=== PATIENT | female | born 1965 | race Caucasian/White ===

== ENCOUNTER 2020-08-01 19:02 | Inpatient (IN) | payer OTHER, SELFPAY ==
--- NOTE | ~2020-08-01 | XR_ITS ---
EXAMINATION: PELVIS AND RIGHT FEMUR, RIGHT HIP CLINICAL INFORMATION: Fall with hip pain COMPARISON: None TECHNIQUE: 2 views right femur, single view pelvis with 2 additional views right hip FINDINGS: There is a femoral neck fracture with marked varices angulation of the distal fracture fragment and some mild superior subluxation no other fracture is seen. The visualized bowel gas pattern appears normal. No hip dislocation is seen. The remainder of the femur appears normal as does the visualized right knee joint XR/XR femur RT 2V IMPRESSION: Right femoral neck fracture.
--- NOTE | ~2020-08-01 | XR_ITS ---
EXAMINATION: XR PELVIS CLINICAL INFORMATION: Status post right hemiarthroplasty COMPARISON: Right hip radiographs August 01, 2020 TECHNIQUE: AP view of the pelvis. FINDINGS: Patient is status post right hemiarthroplasty. Femoral component is well-seated within the [place] acetabulum. There is no evidence of periprosthetic femoral fracture. A small amount of expected subcutaneous emphysema is noted. XR/XR pelvis 1-2V IMPRESSION: Expected postoperative appearance of the right hip.
--- NOTE | ~2020-08-01 | CT_ITS ---
EXAMINATION: CT ANGIOGRAM OF THE CHEST WITH AND WITHOUT CONTRAST (CT PULMONARY ANGIOGRAM FOR PE) CLINICAL INFORMATION: Hypoxia. COMPARISON: Chest radiograph dated 08/01/2020. TECHNIQUE: Prior to contrast administration, noncontrast localization images were obtained. Subsequently, multidetector volumetric imaging was performed from the thoracic inlet to below the diaphragms following the administration of 80 mL Omnipaque 350 intravenous contrast. No contrast reaction reported Sagittal, coronal, and MIP oblique sagittal reformatted images were obtained on the CT workstation, uploaded to PACS, and reviewed. This CT examination was performed using dose optimization techniques as appropriate, variously including the following: *Automated exposure control *Adjustment of mA and/or kV according to patient size (this includes techniques or standardized protocols for targeted exams where dose is matched to indication/reason for exam; i.e. extremities or head) *Use of iterative reconstruction technique Total exam dose-length product 205 mGy-cm FINDINGS: QUALITY OF STUDY/CONTRAST BOLUS: Satisfactory. PULMONARY ARTERIES: No central or segmental pulmonary emboli. THORACIC AORTA: No aneurysm or dissection. LUNGS/PLEURA/AIRWAYS: A few scattered groundglass opacities are seen. A nutrition representative opacity anteromedially in the left upper lobe is seen (image 154, series 7). A second opacity more centrally in the left upper lobe is seen on image 157, series 7). A small opacity anteriorly in the right upper lobe is seen (image 181, series 7). Mild linear atelectasis versus scarring is seen in the right middle lobe. More prominent atelectasis/scarring is seen posteriorly in the lower lobes. Mild dependent atelectasis is seen in the lower lobes bilaterally. There are trace pleural effusions bilaterally. The airways are patent. MEDIASTINUM: Partial visualization of left thyroid nodule measuring 0.6 cm (image 1, series 5). Normal heart size. No pericardial effusion. No hilar or mediastinal lymphadenopathy. No evidence of septal bowing or right heart strain. CHEST WALL/AXILLA: No axillary or internal mammary lymphadenopathy. OSSEOUS STRUCTURES: No acute or suspicious osseous abnormality. UPPER ABDOMEN: Unremarkable. No reflux of contrast into the hepatic veins to suggest elevated right heart pressures. CT/CT angio chest PE protocol IMPRESSION: 1. No evidence for pulmonary embolism. 2. A few scattered groundglass opacities as well as bibasilar atelectasis and trace pleural effusions are nonspecific, but suggest a mild infectious/inflammatory process. These findings can be monitored in the short-term with chest radiographs as clinically indicated. 3. Partial visualization of small left thyroid nodule. No follow-up imaging is recommended. VTE: Negative.
--- NOTE | ~2020-08-01 | US_ITS ---
EXAMINATION: US ABDOMEN LIMITED CLINICAL INFORMATION: Elevated liver enzymes. COMPARISON: None TECHNIQUE: Real-time imaging of the right upper quadrant abdominal viscera. Today's examination is limited secondary to overlying bowel gas. FINDINGS: PANCREAS: Majority the pancreas is obscured by overlying bowel gas and therefore the pancreas is not accurately evaluated. LIVER: Liver is mildly enlarged. The liver contour is normal. Echogenicity of the liver is heterogeneous. No focal hepatic lesion. There is no intrahepatic biliary duct dilatation seen. GALLBLADDER: The gallbladder is physiologically distended. Echogenic bile is noted dependently in addition to a few gallstones. No gallbladder wall thickening or pericholecystic fluid appreciated. Negative sonographic Shepard's sign. COMMON BILE DUCT: Normal in caliber measuring 0.3 cm in diameter. RIGHT KIDNEY: The kidney measures 12.4 cm in maximum dimension. There is a 4.2 cm simple appearing midpole cyst. No renal calculi or hydronephrosis of the right kidney. FREE FLUID: None. US/US abdomen limited IMPRESSION: 1. Cholelithiasis. No other sonographic evidence to suggest acute cholecystitis. Clinical correlation recommended. 2. Mild hepatomegaly with heterogeneous echogenicity. Findings suggest hepatic steatosis. Correlation with liver enzymes recommended. 3. 4.2 cm right renal cyst.
--- NOTE | ~2020-08-01 | XR_ITS ---
EXAMINATION: PELVIS AND RIGHT FEMUR, RIGHT HIP CLINICAL INFORMATION: Fall with hip pain COMPARISON: None TECHNIQUE: 2 views right femur, single view pelvis with 2 additional views right hip FINDINGS: There is a femoral neck fracture with marked varices angulation of the distal fracture fragment and some mild superior subluxation no other fracture is seen. The visualized bowel gas pattern appears normal. No hip dislocation is seen. The remainder of the femur appears normal as does the visualized right knee joint XR/XR hip RT w PEL1V IMPRESSION: Right femoral neck fracture.
--- NOTE | ~2020-08-01 | XR_ITS ---
EXAMINATION: XR CHEST CLINICAL INFORMATION: Fall with hip fracture with question of rib fractures COMPARISON: None TECHNIQUE: Frontal view of the chest was obtained. FINDINGS: No significant abnormality is noted involving the heart, lungs, mediastinum, bony thorax or soft tissues. No displaced rib fractures or pneumothorax is seen. XR/XR chest 1V IMPRESSION: Unremarkable examination.
[2020-08-01 20:06] VITALS: BP 113/78; PULSE 92; RESP 18; TEMP 36.7; O2SAT 98; BMI 26.6
[2020-08-01] MEDS: Acetaminophen 325 MG TABLET 650 MG PO (22:22)
--- NOTE | 2020-08-01 22:39 | ED.FALL ---
HPI - Fall General Chief Complaint: Fall Stated Complaint: FALL Time Seen by Provider: 08/01/20 22:30 Source: patient Mode of arrival: ambulatory Limitations: no limitations and language barrier History of Present Illness HPI Narrative: 55-year-old female who presents emergency department for evaluation of right lower extremity pain after a fall. Patient states she was walking up stairs her cellar stairs at around 7:00 a.m. when she missed the 1st step, tripped and fell concrete sellar floor, landing on her right side. She states she struck her right chest, right hip and right leg on a concrete landing. She denied any head injury or loss of consciousness. She states that she has had difficulty walking since the injury. She is taking Aleve 2-3 times today with no relief for pain. The pain got worse therefore she came to the emergency department. She describes the pain as a constant, sharp pain which is 10/10. Pain is worse with movement worse with walking. Related Data Home Medications Medication Instructions Recorded Confirmed No Known Home Meds 08/02/20 08/02/20 Allergies Allergy/AdvReac Type Severity Reaction Status Date / Time Penicillins [PENICILLINS] Allergy Unknown UNKNOWN/CHI Unverified 11/18/19 16:24 LDHOOD cillin family Allergy Unknown Uncoded 03/07/16 00:00 Review of Systems Review of Systems: Yes all other systems are reviewed and are negative [facility] Past Medical History [facility] Narrative: Past medical history: None. Past surgical history: None. Social history: The patient smokes 1/2 pack of cigarettes per day times many years. She drinks alcohol every other day 1-2 drinks. She denies drug use. Medical History (Updated 08/01/20 @ 23:35 by Robinson Pike MD) No known health problems Social History Social History Advance Directives: No Advance Directives Information Provided: Yes Patient : No Physical Exam Vital Signs: Vital Signs: Last Vital Signs Temp 98.1 F 08/01/20 20:06 Pulse 92 08/01/20 20:06 Resp 18 08/01/20 20:06 BP 113/78 08/01/20 20:06 Pulse Ox 98 08/01/20 20:06 Body Mass Index 26.6 Const: General: cooperative and healthy appearing Orientation/consciousness: oriented to person and oriented to place Limitations: no limitations HENMT: Head: Yes normal to inspection, Yes normocephalic and Yes atraumatic Ears: external ears normal General nose exam: Normal external nose present Face and sinus: Yes normal facial exam Mouth: Normal oral and palatal mucosa present Throat: Yes posterior oropharynx normal Eyes: Periorbital: periorbital findings normal Eyelids: Yes eyelids normal Conjunctivae: conjunctivae normal Sclerae: sclerae normal Corneas: corneas normal Pupils: Equal, round and reactive pupils present Direct Ophthalmoscopy: normal light reflex Neck: Neck: Yes full ROM, Yes no lymphadenopathy, Yes no meningeal signs, Yes trachea midline and Yes supple Chest: Chest palpation & inspection: normal inspection of the chest and normal palpation of entire chest wall Resp: Effort & Inspection: normal respiratory effort and able to speak in complete sentences Auscultation: clear to auscultation bilaterally Cardio: Rate: regular rate Rhythm: regular rhythm Heart sounds: S1 normal heart sound present, S2 normal heart sound present and no murmurs GI: Inspection: Yes normal to inspection Palpation (GI): Soft to palpation, nontender, no guarding, not rigid and No hepatosplenomegaly present : General: Yes no CVA tenderness Back/Spine/Pelvis: Back: no CVA tenderness Cervical Spine: normal cervical lordosis Thoracic/Lumbar Spine: thoracic and lumbar spine normal to inspection Skin: Lesions: no lesions Rashes: no rashes Wounds: no wounds Neuro: General: oriented to person, oriented to place and no meningeal signs Cranial nerves: Yes CN's II-XII intact bilaterally and Yes Equal, round and reactive pupils present Cognition (Neuro): normal cognition Motor exam (neuro): 5/5 motor strength present throughout Extrem: Other: The patient has tenderness with palpation of her right hip joint, right lateral hip, right lateral femur. Her extremity is neurovascular intact Psych: Appearance: well kempt Mental Status: mental status grossly normal Speech and movement: Normal speech and movement present Affect: normal affect Attitude: cooperative Thought process: Normal thought process present Thought content: Normal thought content present Course Course Course Narrative: 55-year-old female who presents emergency department for evaluation fall walking up stairs that occurred at 7:00 a.m.. Patient is complaining of right lower extremity pain. She does have tenderness with palpation of her right hip and right lateral femur. I did order x-rays of her lower extremity. She was given Tylenol orally for pain. 2326: X-rays revealed a right femoral neck fracture. Chest x-ray was unremarkable. I did order laboratory evaluation and EKG on the patient. Twelve EKG revealed sinus rhythm with inverted T-waves in V2 through V4 otherwise was unremarkable. I do not think that these represent ischemia. I will check a troponin on the patient. I did discuss the patient's presentation with the provider covering for the Orthopedic Service, Dilcia Crowell. The patient will be admitted to the orthopedic service with medical consult given the abnormal EKG. The pain was treated with morphine 4 mg IV and Ativan 0.5 mg IV for anxiety. 0103: Laboratory evaluation revealed a macrocytic anemia with an H&H of 10.4 and 30.5. MCV was elevated at 103. I added a B12 and folate. Patient has an elevated AST and ALT of 82 and 36. Troponin was not detectable. These findings are consistent with alcohol use disorder. The patient did tell me that she drinks at least 3 drinks of vodka per day in in the past was drinking up to 1 pt of vodka per day. I will discuss these findings with the covering orthopedic provider. The patient will need to be watched closely for alcohol withdrawal and will need thigh min and Ash replacement. MDM - Fall Lab Data Result diagrams: 08/01/20 23:46 08/01/20 23:46 Labs: Lab Results 08/01/20 08/01/20 08/01/20 Range/Units 23:46 23:46 23:46 WBC 8.6 (4.8-10.8) X10*3/uL RBC 2.94 L (4.20-5.50) X10*6/uL Hgb 10.4 L (12.0-16.0) g/dl Hct 30.5 L (37-47) % MCV 103.7 H (80-98) fL MCH 35.4 H (27.0-33.0) pg MCHC 34.1 (31.0-35.0) g/dl RDW 16.6 H (11.0-16.0) % Plt Count 176 (160-400) X10*3/uL MPV 10.1 (9.4-12.3) fL Immature Gran % (Auto) 0.3 (0.0-0.4) % Neut % (Auto) 74.3 H (45-73) % Lymph % (Auto) 12.8 L (20-40) % [place] % (Auto) 10.3 (2-11) % Eos % (Auto) 1.6 (0-4) % Baso % (Auto) 0.7 (0-2) % Lymph # (Auto) 1.1 L (1.2-4.9) X10*3/uL [place] # (Auto) 0.9 (0.1-1.2) X10*3/uL Eos # (Auto) 0.1 (0.0-0.4) X10*3/uL Baso # (Auto) 0.1 (0.0-0.2) X10*3/uL Abs Immat Gran (auto) 0.03 (0.00-0.03) X10*3/uL Absolute Neuts (auto) 6.4 (2.0-8.3) X10*3/uL Absolute Nucleated RBC 0.000 (0.0-0.012) X10*3/uL Nucleated RBC % (auto) 0.0 (0.0-0.2) /100WBC PT 18.7 H (10.8-13.0) SEC INR 1.6 H (0.9-1.1) APTT 39.0 H (24.1-38.0) SEC Sodium 138 (135-145) mmol/L Potassium 3.7 (3.3-5.1) mmol/L Chloride 98 (96-108) mmol/L Carbon Dioxide 25 (22-29) mmol/L Anion Gap 19 (12-20) BUN 16 (9-16) mg/dL Creatinine 1.15 (0.5-1.4) mg/dL Estim Creat Clear Calc 53.7 Estimated GFR 49 Random Glucose 126 H (60-115) mg/dL Calcium 8.9 (8.4-10.2) mg/dL Total Bilirubin 2.9 H (0.0-1.0) mg/dL AST 82 H (5-31) U/L ALT 36 H (0-31) U/L Alkaline Phosphatase 137 H (39-117) U/L Troponin I High Sens (<3.5-17.0) ng/L Total Protein 6.7 (6.5-8.0) g/dL Albumin 3.3 L (3.5-5.0) g/dL Blood Type Antibody Screen 08/01/20 08/01/20 Range/Units 23:47 23:47 WBC (4.8-10.8) X10*3/uL RBC (4.20-5.50) X10*6/uL Hgb (12.0-16.0) g/dl Hct (37-47) % MCV (80-98) fL MCH (27.0-33.0) pg MCHC (31.0-35.0) g/dl RDW (11.0-16.0) % Plt Count (160-400) X10*3/uL MPV (9.4-12.3) fL Immature Gran % (Auto) (0.0-0.4) % Neut % (Auto) (45-73) % Lymph % (Auto) (20-40) % [place] % (Auto) (2-11) % Eos % (Auto) (0-4) % Baso % (Auto) (0-2) % Lymph # (Auto) (1.2-4.9) X10*3/uL [place] # (Auto) (0.1-1.2) X10*3/uL Eos # (Auto) (0.0-0.4) X10*3/uL Baso # (Auto) (0.0-0.2) X10*3/uL Abs Immat Gran (auto) (0.00-0.03) X10*3/uL Absolute Neuts (auto) (2.0-8.3) X10*3/uL Absolute Nucleated RBC (0.0-0.012) X10*3/uL Nucleated RBC % (auto) (0.0-0.2) /100WBC PT (10.8-13.0) SEC INR (0.9-1.1) APTT (24.1-38.0) SEC Sodium (135-145) mmol/L Potassium (3.3-5.1) mmol/L Chloride (96-108) mmol/L Carbon Dioxide (22-29) mmol/L Anion Gap (12-20) BUN (9-16) mg/dL Creatinine (0.5-1.4) mg/dL Estim Creat Clear Calc Estimated GFR Random Glucose (60-115) mg/dL Calcium (8.4-10.2) mg/dL Total Bilirubin (0.0-1.0) mg/dL AST (5-31) U/L ALT (0-31) U/L Alkaline Phosphatase (39-117) U/L Troponin I High Sens < 3.5 (<3.5-17.0) ng/L Total Protein (6.5-8.0) g/dL Albumin (3.5-5.0) g/dL Blood Type O Positive Antibody Screen NEGATIVE ECG Data Attestation: I personally reviewed and interpreted this ECG as follows: Interpretation: 2319: Normal sinus rhythm rate of 83, normal [place] interval QRS duration. Patient has a slightly prolonged QTC of 479 milliseconds. There is no ST segment elevation or depression. The patient does have an inverted T-wave in V2, V3 and V4. There is no old EKG for comparison. Discharge Plan Discharge Clinical Impression: Fall (on) (from) other stairs and steps, initial encounter Femoral neck fracture Qualifiers: Encounter type: initial encounter Fracture type: closed Laterality: right Qualified Code(s): S72.001A - Fracture of unspecified part of neck of right femur, initial encounter for closed fracture Patient Disposition: Admitted As Inpatient
--- NOTE | 2020-08-01 22:50 | ECG_ITS ---
Test Reason : Fall, hip fracture Blood Pressure : / mmHG Vent. Rate : 083 BPM Atrial Rate : 083 BPM P-R Int : 150 ms QRS Dur : 082 ms QT Int : 408 ms P-R-T Axes : -13 -06 073 degrees QTc Int : 479 ms Normal sinus rhythm ST & T wave abnormality, consider anterior ischemia Abnormal ECG No previous ECGs available Referred By: Robinson Pike Electronically Signed By:Paul Mir
[2020-08-01] MEDS: Morphine Sulfate 4 MG/ML CARTRIDGE IVPUSH (23:55)
[2020-08-01] MEDS: LORazepam 2 MG/ML VIAL 0.5 MG IVPUSH (23:56)
[2020-08-01 23:59] LABS: MANUAL DIFF FLAG NO
[2020-08-02] VITALS (9 sets, daily range): BP systolic 90–102; BP diastolic 54–62; PULSE 73–97; RESP 15–20; TEMP 35.7–36.7; O2SAT 93–97
--- NOTE | 2020-08-02 | ECG_ITS ---
Test Reason : ANTERIOR DEPRESSION Blood Pressure : / mmHG Vent. Rate : 078 BPM Atrial Rate : 078 BPM P-R Int : 214 ms QRS Dur : 090 ms QT Int : 428 ms P-R-T Axes : 051 -10 111 degrees QTc Int : 487 ms Sinus rhythm with 1st degree A-V block Low voltage QRS T wave abnormality, consider anterior ischemia Prolonged QT Abnormal ECG When compared with ECG of 01-AUG-2020 23:19, NM interval has increased Referred By: Luis Eduardo Gonsales Electronically Signed By:Paul Mir
[2020-08-02 00:01] LABS: Basophils Absolute Auto 0.1 X10*3/uL (0.0-0.2); Basophils Percent Auto 0.7 % (0-2); Eosinophils Absolute Auto 0.1 X10*3/uL (0.0-0.4); Eosinophils Percent Auto 1.6 % (0-4); Hematocrit 30.5 % (37-47); Hemoglobin 10.4 g/dl (12.0-16.0); Imm Gran Abs Auto 0.03 X10*3/uL (0.00-0.03); Imm Gran Pct Auto 0.3 % (0.0-0.4); Lymphocytes Absolute Auto 1.1 X10*3/uL (1.2-4.9); Lymphocytes Percent Auto 12.8 % (20-40); Mean Corpuscular HGB Conc 34.1 g/dl (31.0-35.0); Mean Corpuscular Hemoglobin 35.4 pg (27.0-33.0); Mean Corpuscular Volume 103.7 fL (80-98); Mean Platelet Volume 10.1 fL (9.4-12.3); Monocytes Absolute Auto 0.9 X10*3/uL (0.1-1.2); Monocytes Percent Auto 10.3 % (2-11); Neutrophils Absolute Auto 6.4 X10*3/uL (2.0-8.3); Neutrophils Percent Auto 74.3 % (45-73); Platelet Count 176 X10*3/uL (160-400); Red Blood Count 2.94 X10*6/uL (4.20-5.50); Red Cell Distribution Width 16.6 % (11.0-16.0); White Blood Count 8.6 X10*3/uL (4.8-10.8)
[2020-08-02 00:16] LABS: INTERNATIONAL NORM RATIO 1.6 (0.9-1.1); Prothrombin Time 18.7 SEC (10.8-13.0)
[2020-08-02 00:33] LABS: Alanine Aminotransferase 36 U/L (0-31); Albumin Level 3.3 g/dL (3.5-5.0); Alkaline Phosphatase 137 U/L (39-117); Anion Gap 19 (12-20); Aspartate Amino Transferase 82 U/L (5-31); Bilirubin Total 2.9 mg/dL (0.0-1.0); Blood Urea Nitrogen 16 mg/dL (9-16); Calcium 8.9 mg/dL (8.4-10.2); Carbon Dioxide 25 mmol/L (22-29); Chloride 98 mmol/L (96-108); Creatinine Clr Calc Pharmacy 53.7; Estimated Glomerular Filt Rate 49; Glucose Random 126 mg/dL (60-115); Potassium 3.7 mmol/L (3.3-5.1); Sodium 138 mmol/L (135-145); Total Protein 6.7 g/dL (6.5-8.0)
[2020-08-02 00:40] LABS: Troponin-I High Sensitivity < 3.5 ng/L (<3.5-17.0)
--- NOTE | 2020-08-02 01:16 | PC.NURSE ---
PT MOVED TO MAIN ED REPORT GIVEN TO BIBI HWANG. PT WILL BE MONITOR FOR ETOH WITHDRAWS.
[2020-08-02 01:17] LABS: COVID-19 Test Negative (Negative); IDNOW Serial# 9DD0AD1C
--- NOTE | 2020-08-02 01:56 | PC.NURSE ---
nurse to nurse report given to Gerson MTZ
[2020-08-02 02:09] LABS: Glucose Urine UA NEG (NEG); Leukocyte Esterase Urine TRACE (NEG); Nitrite Urine NEG (NEG); PH 5.5 (5.0-8.0); Specific Gravity - Urine 1.025 (1.005-1.025); UACC Culture Trigger YES; Urine Blood NEG (NEG); Urine Ketones 15 MG/DL (NEG); Urine Protein TRACE MG/DL (NEG-TRACE)
[2020-08-02 02:13] LABS: Appearance Urine HAZY; Color Urine YELLOW
[2020-08-02 02:18] LABS: Bacteria Urine 4+ /LPF; Mucus Urine 1+ /LPF; Squamous Epithelial Cell Urine 1+ /LPF
[2020-08-02] MEDS: Dextrose 5 % and 0.45 % NaCl 1,000 ML 80 ML IVCONT (02:26)
[2020-08-02] MEDS: 0.9 % Sodium Chloride Flush 3 ML SYRINGE IVFLUSH (02:27)
--- NOTE | 2020-08-02 03:26 | PC.NURSE ---
Pt came to the floor with STAT meds of B12, Folic Acid, Thiamine and Vit K1 2 hrs late. Nurse called Er Doc about the orders. He said he was unable to alter the medication and they were overdue to give. Nurse charted not given.
[2020-08-02 07:08] LABS: Anion Gap 12 (12-20); Blood Urea Nitrogen 17 mg/dL (9-16); Calcium 8.5 mg/dL (8.4-10.2); Carbon Dioxide 31 mmol/L (22-29); Chloride 98 mmol/L (96-108); Creatinine Clr Calc Pharmacy 38.2; Estimated Glomerular Filt Rate 33; Glucose Fasting 100 mg/dL (60-99); Potassium 3.4 mmol/L (3.3-5.1); Sodium 138 mmol/L (135-145)
--- NOTE | 2020-08-02 07:41 | P.CONOP_ITS ---
History of Present Illness HPI Consult date: 08/02/20 Consult reason: fracture Chief complaint: Right femoral neck fracture Narrative: Patient presents to the ED yesterday evening after sustaining a fall down her basement stairs at 7:00am. She lives with her significant other and does not use any assistive devices for ambulation. No significant medical history. She presented to the ED at 6:00pm where x-rays where obtained and she was found to have a right hip femoral neck fracture. Orthopedics was then consulted for further evaluation and treatment. She has been admitted to the orthopedic service. Review of Systems Review of Systems: Yes all other systems are reviewed and are negative PMFSH Past Medical History Medical History (Updated 08/01/20 @ 23:35 by Robinson Pike MD) No known health problems Social History Social History Household Members: Significant Other Housing: House Do you presently have visiting nurse or other home services: No Patient Tobacco Use Status: Current everyday Tobacco user Tobacco use type: Cigarette Cigarettes Per Day: 10 Years Smoked: 30 Patient Interested in Nicotine Replacement: No Patient Given Instructions on How to Stop Smoking: No Second Hand Smoke Exposure: No Use of substances other than those prescribed or required for medical reasons: No Substance Use Type: Marijuana Substance Use Frequency: Occasionally Last Used Substance: Days (ago) Currently Displaying Signs/Symptoms of Drug Intoxication Withdrawal: No Any prior treatment program specific to substance use: No Have you been hit, kicked, punched, or otherwise hurt by someone within the past year? If so, by whom?: No Do you feel safe in your current relationship?: No Current Relationship Is there a partner from a previous relationship who is making you feel unsafe now?: No Are you made to feel afraid or neglected: No Advance Directives: No Advance Directives Information Provided: Yes Do you have thoughts of harming others: None Do you have a plan to hurt others: No Plan Recently lost weight without trying: Yes How much weight loss: 14-23 pounds Eating poorly because of decreased appetite: No Nutrition screen score: 4 Nutrition Risks: No Nutritional Risk Patient : No : No Poor oral hygiene: No Meds Allergies Allergy/AdvReac Type Severity Reaction Status Date / Time Penicillins [PENICILLINS] Allergy Unknown UNKNOWN/CHI Verified 08/02/20 02:28 LDHOOD cillin family Allergy Unknown Unknown Uncoded 08/02/20 02:28 Active Medications: Current Medications Generic Name Dose Route Start Last Admin Trade Name Freq PRN Reason Stop Dose Admin Acetaminophen 650 mg 08/02/20 01:13 Acetaminophen Supp 650 Mg Supp.Rect MS Q6H PRN Pain, Mild (Pain Scale 1-3) Docusate Sodium 100 mg 08/02/20 09:00 Docusate Sodium 100 Mg Capsule PO BID PATI Hydromorphone HCl 0.25 mg 08/02/20 01:13 Hydromorphone Hcl 0.5 Mg/0.5 Ml Syringe IVPUSH Q4H PRN Pain, Severe (Pain Scale 7-10) Dextrose/Sodium Chloride 1,000 mls @ 80 mls/hr 08/02/20 01:13 08/02/20 02:26 D51/2ns IVCONT 80 mls/hr .[id number] [facility] Administration Naloxone HCl 0.2 mg 08/02/20 01:13 Naloxone Hcl 0.4 Mg/Ml Vial IVPUSH Q2M PRN Excessive sedation or RR < 8 Ondansetron HCl 4 mg 08/02/20 01:13 Ondansetron Hcl 4 Mg/2 Ml Vial IVPUSH Q8H PRN Nausea and Vomiting Oxycodone HCl 5 mg 08/02/20 01:13 Oxycodone Hcl Immed Release 5 Mg Tablet PO Q4H PRN Pain, Moderate (Pain Scale 4-6 Oxycodone HCl 10 mg 08/02/20 09:00 Oxycodone Hcl Er 10 Mg Tab.Er.12h PO BID PATI Sodium Chloride 3 ml 08/02/20 01:13 08/02/20 02:27 0.9 % Sodium Chloride Flush 3 Ml Syringe IVFLUSH 3 ml QSHIFT [facility] Administration Home Medications Medication Instructions Recorded Confirmed Last Taken Type No Known Home Meds 08/02/20 08/02/20 Unknown History Physical Exam Vital Signs: Vital Signs: Last Vital Signs Temp 96.6 F L 08/02/20 03:19 Pulse 78 08/02/20 03:19 Resp 16 08/02/20 03:19 BP 93/56 L 08/02/20 03:19 Pulse Ox 97 08/02/20 03:19 Body Mass Index 26.6 Const: General: cooperative, healthy appearing, comfortable, no acute distress, well developed, alert and awake Orientation/consciousness: patient oriented x3 HENMT: Head: Yes normal to inspection, Yes normocephalic and Yes atraumatic Eyes: General: appearance normal, both eyes and all related structures Neck: Neck: Yes normal visual inspection and Yes no lymphadenopathy Resp: Effort & Inspection: normal respiratory effort and able to speak in complete sentences Cardio: Rate: regular rate Peripheral pulses: Peripheral pulses 2+ throughout GI: Inspection: Yes normal to inspection Palpation (GI): Soft to palpation Skin: General skin exam: no rashes or lesions noted Neuro: General: patient oriented x3 Extrem: Other: Right leg is shortened and externally rotated. Skin is intact with no abrasions or lesions. Pain with leg roll. Unable to perform a straight leg raise. She is able to plantarflex and dorsiflex. Sensation intact. Pedal pulse intact. Psych: Mental Status: mental status grossly normal Results Labs Result Diagrams: 08/01/20 23:46 08/02/20 06:10 Labs: Abnormal lab results 08/01/20 08/01/20 08/01/20 Range/Units 23:46 23:46 23:46 RBC 2.94 L (4.20-5.50) X10*6/uL Hgb 10.4 L (12.0-16.0) g/dl Hct 30.5 L (37-47) % MCV 103.7 H (80-98) fL MCH 35.4 H (27.0-33.0) pg RDW 16.6 H (11.0-16.0) % Neut % (Auto) 74.3 H (45-73) % Lymph % (Auto) 12.8 L (20-40) % Lymph # (Auto) 1.1 L (1.2-4.9) X10*3/uL PT 18.7 H (10.8-13.0) SEC INR 1.6 H (0.9-1.1) APTT 39.0 H (24.1-38.0) SEC Carbon Dioxide (22-29) mmol/L BUN (9-16) mg/dL Creatinine (0.5-1.4) mg/dL Random Glucose 126 H (60-115) mg/dL Fasting Glucose (60-99) mg/dL Total Bilirubin 2.9 H (0.0-1.0) mg/dL AST 82 H (5-31) U/L ALT 36 H (0-31) U/L Alkaline Phosphatase 137 H (39-117) U/L Albumin 3.3 L (3.5-5.0) g/dL Ur Leukocyte Esterase (NEG) Urine WBC (0-4) /HPF 08/02/20 08/02/20 Range/Units 02:01 06:10 RBC (4.20-5.50) X10*6/uL Hgb (12.0-16.0) g/dl Hct (37-47) % MCV (80-98) fL MCH (27.0-33.0) pg RDW (11.0-16.0) % Neut % (Auto) (45-73) % Lymph % (Auto) (20-40) % Lymph # (Auto) (1.2-4.9) X10*3/uL PT (10.8-13.0) SEC INR (0.9-1.1) APTT (24.1-38.0) SEC Carbon Dioxide 31 H (22-29) mmol/L BUN 17 H (9-16) mg/dL Creatinine 1.62 H (0.5-1.4) mg/dL Random Glucose (60-115) mg/dL Fasting Glucose 100 H (60-99) mg/dL Total Bilirubin (0.0-1.0) mg/dL AST (5-31) U/L ALT (0-31) U/L Alkaline Phosphatase (39-117) U/L Albumin (3.5-5.0) g/dL Ur Leukocyte Esterase TRACE H (NEG) Urine WBC 5-9 H (0-4) /HPF H & H 08/01/20 Range/Units 23:46 Hgb 10.4 L (12.0-16.0) g/dl Hct 30.5 L (37-47) % Coagulation 08/01/20 Range/Units 23:46 INR 1.6 H (0.9-1.1) All other labs normal. Assessment and Plan (1) Femoral neck fracture: Qualifiers: Encounter type: initial encounter Fracture type: closed Laterality: right Qualified Code(s): S72.001A - Fracture of unspecified part of neck of right femur, initial encounter for closed fracture Status: Acute Ms. Larose is a 55 year old female who presented to the ED after sustaining a fall down the basement stairs yesterday morning at 7:00am. X-rays obtained in the ED revealed a right femoral neck fracture and orthopedics was consulted. The patient has been admitted to the orthopedic service for further treatment. I discussed the case with Dr. Lima and explained the extent of the injury to the patient and options available which include surgical intervention. I explained the procedure in detail along with the length of recovery and rehab course. I explained the risk, benefits and alternatives. Risk including, but not limited to infection, blood clots, bleeding, non union or malunion and nerve/tissue damage to surrounding areas. I answered all their questions and with their understanding they have consented to move forward with Operative Fixation of the left hip with a hemiarthroplasty. The patient will be T&S, med c learance to be obtained by medicine and she will remain NPO. (2) Fall (on) (from) other stairs and steps, initial encounter: Status: Acute Procedures Date of Service Date of Service: 08/02/20
[2020-08-02] MEDS: 0.9 % Sodium Chloride 1,000 ML 999 ML IVCONT (08:22)
--- NOTE | 2020-08-02 08:22 | P.CONIM_ITS ---
History of Present Illness Data of Consult Service Date: 08/02/20 Primary Care Provider: Darien Oseguera MD [facility] Reason for consult: Pre-op evaluation 55 year female with reports no chronic medical issues but drinks on daily basis and presently admitted to the Ortho service for hip fracture. She reports triping on stair going to her sellar yesterday morning, she did not injury her head and no loss of consciousness, she was not having chest pain or sob at that time. She doesn't have anginal or heart failure symptoms. Work up in ED reveal right hip fracture. Labs showed elevated LFTs, INR consistent with alcoholic liver disease. Her ECG shows anteroir TWI, no ECG for comparaison. Her Creatinine has gone up this morning to 1.6 from 1.5 prior day. Review of Systems Review of Systems: Gen: no fever Resp: no sob, no cough CV: no chest, no SHARIF, no leg edema GI: No n/v, no abd pain Neuro: No confusion, no tremors, MSK: right hip pain with movment Yes all other systems are reviewed and are negative [facility] Medical History (Updated 08/02/20 @ 08:31 by Luis Eduardo Gonsales MD) Chronic alcohol use No known health problems Functional capacity: independent ambulation Family history: reviewed and not pertinent Social History (Updated 08/02/20 @ 08:30 by Luis Eduardo Gonsales MD) Household Members: Significant Other Housing: House Do you presently have visiting nurse or other home services: No Patient Tobacco Use Status: Current everyday Tobacco user Tobacco use type: Cigarette Cigarettes Per Day: 10 Years Smoked: 30 Patient Interested in Nicotine Replacement: No Patient Given Instructions on How to Stop Smoking: No Second Hand Smoke Exposure: No Use of substances other than those prescribed or required for medical reasons: No Substance Use Type: Marijuana Substance Use Frequency: Occasionally Last Used Substance: Days (ago) Currently Displaying Signs/Symptoms of Drug Intoxication Withdrawal: No Any prior treatment program specific to substance use: No Have you been hit, kicked, punched, or otherwise hurt by someone within the past year? If so, by whom?: No Do you feel safe in your current relationship?: No Current Relationship Is there a partner from a previous relationship who is making you feel unsafe now?: No Are you made to feel afraid or neglected: No Advance Directives: No Advance Directives Information Provided: Yes Do you have thoughts of harming others: None Do you have a plan to hurt others: No Plan Recently lost weight without trying: Yes How much weight loss: 14-23 pounds Eating poorly because of decreased appetite: No Nutrition screen score: 4 Nutrition Risks: No Nutritional Risk Patient : No : No Poor oral hygiene: No Meds Allergies Allergy/AdvReac Type Severity Reaction Status Date / Time Penicillins [PENICILLINS] Allergy Unknown UNKNOWN/CHI Verified 08/02/20 02:28 LDHOOD cillin family Allergy Unknown Unknown Uncoded 08/02/20 02:28 Active Medications: Current Medications Generic Name Dose Route Start Last Admin Trade Name Freq PRN Reason Stop Dose Admin Acetaminophen 650 mg 08/02/20 01:13 Acetaminophen Supp 650 Mg Supp.Rect CA Q6H PRN Pain, Mild (Pain Scale 1-3) Docusate Sodium 100 mg 08/02/20 09:00 Docusate Sodium 100 Mg Capsule PO BID PATI Hydromorphone HCl 0.25 mg 08/02/20 01:13 Hydromorphone Hcl 0.5 Mg/0.5 Ml Syringe IVPUSH Q4H PRN Pain, Severe (Pain Scale 7-10) Dextrose/Sodium Chloride 1,000 mls @ 80 mls/hr 08/02/20 01:13 08/02/20 02:26 D51/2ns IVCONT 80 mls/hr .[id number] PATI Administration Sodium Chloride 1,000 mls @ 999 mls/hr 08/02/20 08:30 Ns IVCONT 08/02/20 09:30 .Q1H1M PATI Phytonadione 10 mg/ Sodium 51 mls @ 51 mls/hr 08/02/20 08:19 Chloride IV 08/02/20 09:18 ONCE ONE Naloxone HCl 0.2 mg 08/02/20 01:13 Naloxone Hcl 0.4 Mg/Ml Vial IVPUSH Q2M PRN Excessive sedation or RR < 8 Ondansetron HCl 4 mg 08/02/20 01:13 Ondansetron Hcl 4 Mg/2 Ml Vial IVPUSH Q8H PRN Nausea and Vomiting Oxycodone HCl 5 mg 08/02/20 01:13 Oxycodone Hcl Immed Release 5 Mg Tablet PO Q4H PRN Pain, Moderate (Pain Scale 4-6 Oxycodone HCl 10 mg 08/02/20 09:00 Oxycodone Hcl Er 10 Mg Tab.Er.12h PO BID PATI Sodium Chloride 3 ml 08/02/20 01:13 08/02/20 02:27 0.9 % Sodium Chloride Flush 3 Ml Syringe IVFLUSH 3 ml QSHIFT [facility] Administration Home Medications Medication Instructions Recorded Confirmed Last Taken Type No Known Home Meds 08/02/20 08/02/20 Unknown History Physical Exam Vital Signs and Narrative: Vital Signs: Last Vital Signs Temp 96.2 F L 08/02/20 08:00 Pulse 74 08/02/20 08:00 Resp 16 08/02/20 08:00 BP 90/55 L 08/02/20 08:00 Pulse Ox 96 08/02/20 08:00 Body Mass Index 26.6 Const: Other: Constitutional Awake and Alert, No apparent distress HEENT-normal eye movment, no clear jaundice Neck Supple, No lymphadenopathy Cardiovascular RRR, No M/R/G, S1 S2, No S3 S4, No pedal edema Respiratory Lungs clear, No respiratory distress Gastrointestinal Non tender, Non-distended Skin No rash Neurological Alert & oriented x3 Psychological Appropriate affect Results Labs CBC and Chem 7: 08/01/20 23:46 08/02/20 06:10 Labs: Laboratory Results - last 24 hr 08/01/20 08/01/20 08/01/20 23:46 23:46 23:46 MCV 103.7 H MCH 35.4 H MCHC 34.1 RDW 16.6 H Plt Count 176 MPV 10.1 Immature Gran % (Auto) 0.3 Neut % (Auto) 74.3 H Lymph % (Auto) 12.8 L [place] % (Auto) 10.3 Eos % (Auto) 1.6 Baso % (Auto) 0.7 Lymph # (Auto) 1.1 L [place] # (Auto) 0.9 Eos # (Auto) 0.1 Baso # (Auto) 0.1 Abs Immat Gran (auto) 0.03 Absolute Neuts (auto) 6.4 Absolute Nucleated RBC 0.000 Nucleated RBC % (auto) 0.0 PT 18.7 H INR 1.6 H APTT 39.0 H Anion Gap 19 Estim Creat Clear Calc 53.7 Estimated GFR 49 Random Glucose 126 H Fasting Glucose Calcium 8.9 Total Bilirubin 2.9 H AST 82 H ALT 36 H Alkaline Phosphatase 137 H Troponin I High Sens Total Protein 6.7 Albumin 3.3 L Urine Color Urine Appearance Urine pH Ur Specific [place] Urine Protein Urine Glucose (UA) Urine Ketones Urine Blood Urine Nitrite Ur Leukocyte Esterase Urine RBC Urine WBC Ur Squamous Epith Cells Urine Bacteria Hyaline Casts Urine Mucus COVID-19 (REBECCA) COVID-19 Clin Com Blood Type Antibody Screen 08/01/20 08/01/20 08/02/20 23:47 23:47 00:57 MCV MCH MCHC RDW Plt Count MPV Immature Gran % (Auto) Neut % (Auto) Lymph % (Auto) [place] % (Auto) Eos % (Auto) Baso % (Auto) Lymph # (Auto) [place] # (Auto) Eos # (Auto) Baso # (Auto) Abs Immat Gran (auto) Absolute Neuts (auto) Absolute Nucleated RBC Nucleated RBC % (auto) PT INR APTT Anion Gap Estim Creat Clear Calc Estimated GFR Random Glucose Fasting Glucose Calcium Total Bilirubin AST ALT Alkaline Phosphatase Troponin I High Sens < 3.5 Total Protein Albumin Urine Color Urine Appearance Urine pH Ur Specific [place] Urine Protein Urine Glucose (UA) Urine Ketones Urine Blood Urine Nitrite Ur Leukocyte Esterase Urine RBC Urine WBC Ur Squamous Epith Cells Urine Bacteria Hyaline Casts Urine Mucus COVID-19 (REBECCA) Negative COVID-19 Clin Com See Note Blood Type O Positive Antibody Screen NEGATIVE 08/02/20 08/02/20 02:01 06:10 MCV MCH MCHC RDW Plt Count MPV Immature Gran % (Auto) Neut % (Auto) Lymph % (Auto) [place] % (Auto) Eos % (Auto) Baso % (Auto) Lymph # (Auto) [place] # (Auto) Eos # (Auto) Baso # (Auto) Abs Immat Gran (auto) Absolute Neuts (auto) Absolute Nucleated RBC Nucleated RBC % (auto) PT INR APTT Anion Gap 12 Estim Creat Clear Calc 38.2 Estimated GFR 33 Random Glucose Fasting Glucose 100 H Calcium 8.5 Total Bilirubin AST ALT Alkaline Phosphatase Troponin I High Sens Total Protein Albumin Urine Color YELLOW Urine Appearance HAZY Urine pH 5.5 Ur Specific [place] 1.025 Urine Protein TRACE Urine Glucose (UA) NEG Urine Ketones 15 Urine Blood NEG Urine Nitrite NEG Ur Leukocyte Esterase TRACE H Urine RBC 1-4 Urine WBC 5-9 H Ur Squamous Epith Cells 1+ Urine Bacteria 4+ Hyaline Casts 1-4 Urine Mucus 1+ COVID-19 (REBECCA) COVID-19 Clin Com Blood Type Antibody Screen Imaging Radiologist's Impressions: Impressions Femur X-Ray 08/01/20 22:38 IMPRESSION: Right femoral neck fracture. Hip/Pelvis X-Ray 08/01/20 22:38 IMPRESSION: Right femoral neck fracture. Chest X-Ray 08/01/20 22:49 IMPRESSION: Unremarkable examination. Assessment and Plan (1) Femoral neck fracture: Qualifiers: Encounter type: initial encounter Fracture type: closed Laterality: right Qualified Code(s): S72.001A - Fracture of unspecified part of neck of right femur, initial encounter for closed fracture Status: Acute (2) Chronic alcohol use: Status: Inactive (3) Fall (on) (from) other stairs and steps, initial encounter: Status: Acute 55 year female with alcohol dependency here with mechanical fall and righ hip fracture 1/Right hip fracture--surgery is planned, I would determine her cdardiac risk to be low, however her ECG and is clearly abnormal with anterior TWI and no prior for comparaison and therefore I suggest cardiology to assess her as well before surgery. Repeat ECG this morning. 2/Alcohol dependence--high risk for withdrawal and would suggest premptively treating with Phenobarbital, supplemental folic acid, thiamine 3/CHRIS--pre renal due to low, DC 1/2 NS and add Normal saline, repeat Creatine in the mroning 4/Coagulaopathy with INR 1.6 d/t chronic liver disease and likely cirrhosis of liver -Vitamin K 10, 5/ Elevated LFTs due to chronic liver disease/cirrhosis-should get US of liver before discharge 6/Hypotension-- DC 1/2 NS, add NS Juan follow. Thanks
[2020-08-02] MEDS: oxyCODONE HCl ER 10 MG TAB.ER.12H PO ×2 (08:28→20:43)
[2020-08-02] MEDS: Docusate Sodium 100 MG CAPSULE PO ×2 (08:28→20:42)
[2020-08-02] MEDS: Phytonadione (Vit K1) 10 MG in 0.9 % Sodium Chloride 50 ML 51 MG IV (09:09)
--- NOTE | 2020-08-02 09:22 | MHC.CM.PN ---
Addendum entered by Bernice Hernández RN 08/02/20 12:51: CM DID DISCUSS ETOH USE W/PT WHO DENIES SHE HAS A PROBLEM AND HAS CUT DOWN TO 1-2 DRINKS PER DAY ON HER OWN, DENIES SHE WAS DRINKING WHEN SHE FELL, PT CURRENTLY DECLINING CARE TEAM OR RECOVERY SUPPORT NURSE HOWEVER BY END OF CONVERSATION PT SEEMED INTERESTED IN MED ASSISTED TX HOWEVER NOT READY TO SEE RECOVERY NURSE TODAY, WILL FOLLOW-UP WITH PT LATER IN STAY. Original Note: EMR REVIEWED, PT ADMITTED AFTER FALL W/R FEMORAL NECK FX, PT TO HAVE LEFT HIP HEMIARTHROPLASTY TODAY, CM MET W/PT WHO IS [facility], PT IS INDEPENDENT W/ALL CARE AT BASELINE, NO DME AND NO HOME SERVICES, CM DISCUSSED NEED FOR STR S/P HIP REPAIR AND PT IS WILLING TO GO HOWEVER IS CONCERNED ABOUT CLOSING ON [place] THAT WAS SCHEDULED TOMORROW 08/03, PER PT HER BF [place] SHE IS FROM IS ASSISTING HER REARRANGE HER CLOSING, PT ALSO REPORTS LATHA WOULD LET HER STAY WITH HIM DUE TO HIS HOME BEING ON ONE LEVEL. PT GIVEN LIST OF SNF'S COVERED UNDER HER INSURANCE FOR STR. D/C PLAN: STR W/BLS TRANSPORT PCP: PRANAV WOMACK CM TO VERIFY HCP, PT DOES NOT HAVE A COPY, PT TO SPEAK TO FRIEND/EXBF AND IS WILLING TO COMPLETE A NEW ONE
[2020-08-02] MEDS: oxyCODONE HCl Immed Release 5 MG TABLET PO ×3 (09:32→18:23)
[2020-08-02] MEDS: Thiamine HCL 100 MG TABLET PO (09:32)
[2020-08-02] MEDS: PHENobarbitaL sodium 130 MG/ML VIAL 175 MG IM (09:32)
[2020-08-02] MEDS: Folic Acid 1 MG TABLET PO (09:32)
[2020-08-02] MEDS: 0.9 % Sodium Chloride 1,000 ML 125 ML IVCONT ×3 (10:50→23:41)
--- NOTE | 2020-08-02 11:00 | CA_ITS ---
Transthoracic Echocardiogram Patient (Last, First, Middle): Johnna Larose, Gender: Female Date of : 1965 Age: 55 Procedure Date: 08/02/2020 Procedure Type: Transthoracic Echocardiogram Location: S3E Height: 162.56 cm Weight: 70.31 kg BSA: 1.76 m2 Heart Rate: bpm BP: 90 / 55 mmHg Computer Hardware Developer: Referring MD: Paul Mir MD Symptoms: CP, POSSIBLE CAD, Assess RWMA Study Quality: Good Conclusions: - Normal left ventricular size and systolic function. - There is normal right ventricular systolic function. RV appears mildly dilated in some views. - There is no evidence of pericardial effusion. Findings Left Ventricle Normal left ventricular size and systolic function. There is mildly increased left ventricular wall thickness. The visually estimated ejection fraction is between 65-70%. There is no evidence of regional wall motion abnormalities. Diastolic function is normal for age. Right Ventricle There is normal right ventricular systolic function. RV appears mildly dilated in some views. Atria The left atrium is normal in size. Aortic Valve The aortic valve structure and function is likely normal. There is no aortic valve stenosis. There is no aortic valve regurgitation. Mitral Valve Normal mitral valve structure and function. There is no mitral valve regurgitation. There is no mitral valve stenosis. Pulmonic Valve Normal pulmonic valve structure and function. There is trace pulmonic valve regurgitation. Tricuspid Valve Normal tricuspid valve structure and function. There is trace tricuspid valve regurgitation. Normal right atrial pressure. There is no evidence of pulmonary hypertension. Great Vessels All visible segments of the aorta are normal in size. The visualized portions of the pulmonary artery and branches are normal. Venous The inferior vena cava is normal in size and collapses greater than 50% with inspiration. Pericardium/Pleural There is no evidence of pericardial effusion. Prior Study Comparison No prior study available for comparison. Measurements 2D Linear Measurements IVSd: 0.98 0.6-0.9/0.6-1.0 cm LVIDd: 4.23 3.9-5.3/4.2-5.9 cm LVIDd Index: 2.40 2.4-3.2/2.2-3.1 cm/m2 LVIDs: 2.69 2.0-3.6 cm LVPWd: 0.98 0.7-1.1 cm Ao Root: 2.80 2.1-3.5 cm LA Diam: 3.70 2.7-3.8/3.0-4.0 cm LAIDs Index: 2.10 1.5-2.3 cm/m2 LV Mass: 167.71 67-162/88-224 g LV Mass Index: 95.29 43-95/49-115 g/m2 LVOT Diam: 2.10 3.0+(-)1.3 cm Mitral Valve MV Pk E: 0.94 MV PK A: 0.71 MV Decel Time: 128.00 E/A: 1.30 E'Lateral: 11.20 E'Medial: 9.36 E/E' Med: 10.00 E/E' Lat: 8.40 PHT: 37.00 MVA PHT: 5.95 Decel Gove: 7.33 Aortic Valve AoV Pk [place]: 1.57 AoV Mn [place]: 1.00 AoV VTI: 0.31 AoV Pk Grad: 10.00 Aov Mn Grad: 5.00 BETSY Cont.VTI: 2.08 LVOT LVOT Pk [place]: 1.03 LVOT Mn [place]: 0.78 LVOT VTI: 0.18 LVOT Pk Grad: 4.00 LVOT Mn Grad: 3.00 LVOT Diam: 2.10 LVOT Area: 3.46 Diastolic Function MV Pk E: 0.94 MV Pk A: 0.71 E/A: 1.30 E'Medial: 9.36 E/E' Med: 10.00 E' Laterial: 11.20 E/E' Lat: 8.40 Tricuspid Valve TR Pk [place]: 2.00 TR Pk Grad: 16.00 RA Press: 3.00 RVSP: 19.00 Great Vessels Aorta Ao Root-2D: 2.80 2.0-3.7 cm Ao Asc: 3.00 2.1-3.4 cm Pulmonary Valve PV Pk [place]ell: 1.19 Peak PV Grad: 6.00 Updated in Other Vendor System with Status of Final Paul Mir MD electronically signed on 08/02/2020 2:47:46 PM with status of Final
--- NOTE | 2020-08-02 11:28 | PC.NURSE ---
cardiology called regarding urgent echo ordered. Awaiting call back
[2020-08-02 11:37] LABS: Folate 4.1 ng/mL (> or = 4.0); Vitamin B12 688 pg/mL (200-900)
--- NOTE | 2020-08-02 12:05 | PM.CNCAR ---
History of Present Illness History of Present Illness Date of Service: 08/02/20 Requesting physician: Dilcia Crowell Chief complaint: Right femoral neck fracture, anterior t wave inver Narrative: 55-year-old female with use and mechanical fall. She has femoral neck fracture. ECG showing anterior T-wave inversions. Repeat EKG showing similar changes without any occlusion. She has no chest pain or shortness of breath. No previous cardiac issues. Asymptomatic other than the right leg pain. [facility] Past Medical History Medical History (Updated 08/02/20 @ 12:11 by Paul Mir MD) Chronic alcohol use No known health problems Functional capacity: independent ambulation Family History Family history: reviewed and not pertinent Social History Social History (Updated 08/02/20 @ 08:30 by Luis Eduardo Gonsales MD) Household Members: Significant Other Housing: House Do you presently have visiting nurse or other home services: No Patient Tobacco Use Status: Current everyday Tobacco user Tobacco use type: Cigarette Cigarettes Per Day: 10 Years Smoked: 30 Patient Interested in Nicotine Replacement: No Patient Given Instructions on How to Stop Smoking: No Second Hand Smoke Exposure: No Use of substances other than those prescribed or required for medical reasons: No Substance Use Type: Marijuana Substance Use Frequency: Occasionally Last Used Substance: Days (ago) Currently Displaying Signs/Symptoms of Drug Intoxication Withdrawal: No Any prior treatment program specific to substance use: No Have you been hit, kicked, punched, or otherwise hurt by someone within the past year? If so, by whom?: No Do you feel safe in your current relationship?: No Current Relationship Is there a partner from a previous relationship who is making you feel unsafe now?: No Are you made to feel afraid or neglected: No Advance Directives: No Advance Directives Information Provided: Yes Do you have thoughts of harming others: None Do you have a plan to hurt others: No Plan Recently lost weight without trying: Yes How much weight loss: 14-23 pounds Eating poorly because of decreased appetite: No Nutrition screen score: 4 Nutrition Risks: No Nutritional Risk Patient : No : No Poor oral hygiene: No service: No Current occupational status: unemployed Meds Allergies Allergy/AdvReac Type Severity Reaction Status Date / Time Penicillins [PENICILLINS] Allergy Unknown UNKNOWN/CHI Verified 08/02/20 02:28 LDHOOD cillin family Allergy Unknown Unknown Uncoded 08/02/20 02:28 Active Medications: Current Medications Generic Name Dose Route Start Last Admin Trade Name Freq PRN Reason Stop Dose Admin Acetaminophen 650 mg 08/02/20 01:13 Acetaminophen Supp [address] Q6H PRN Pain, Mild (Pain Scale 1-3) Docusate Sodium 100 mg 08/02/20 09:00 08/02/20 08:28 Docusate Sodium 100 Mg Capsule PO 100 mg BID PATI Administration Folic Acid 1 mg 08/02/20 09:00 08/02/20 09:32 Folic Acid 1 Mg Tablet PO 08/04/20 09:01 1 mg DAILY PATI Administration Hydromorphone HCl 0.25 mg 08/02/20 01:13 Hydromorphone Hcl 0.5 Mg/0.5 Ml Syringe IVPUSH Q4H PRN Pain, Severe (Pain Scale 7-10) Sodium Chloride 1,000 mls @ 125 mls/hr 08/02/20 08:45 08/02/20 10:50 Ns IVCONT 125 mls/hr .Q8H PATI Administration Medication 1 each 08/02/20 09:00 No Benzodiazepines MISCELLANE DAILY [facility] Naloxone HCl 0.2 mg 08/02/20 01:13 Naloxone Hcl 0.4 Mg/Ml Vial IVPUSH Q2M PRN Excessive sedation or RR < 8 Ondansetron HCl 4 mg 08/02/20 01:13 Ondansetron Hcl 4 Mg/2 Ml Vial IVPUSH Q8H PRN Nausea and Vomiting Oxycodone HCl 5 mg 08/02/20 01:13 08/02/20 09:32 Oxycodone Hcl Immed Release 5 Mg Tablet PO 5 mg Q4H PRN Administration Pain, Moderate (Pain Scale 4-6 Oxycodone HCl 10 mg 08/02/20 09:00 08/02/20 08:28 Oxycodone Hcl Er 10 Mg Tab.Er.12h PO 10 mg BID PATI Administration Phenobarbital 45 mg 08/02/20 21:00 Phenobarbital 15 Mg Tablet PO 08/04/20 09:01 BID [facility] Protocol Phenobarbital 30 mg 08/04/20 21:00 Phenobarbital 30 Mg Tablet PO 08/06/20 09:01 BID [facility] Protocol Phenobarbital 30 mg 08/07/20 09:00 Phenobarbital 30 Mg Tablet PO 08/08/20 09:01 DAILY [facility] Protocol Phenobarbital Sodium 130 mg 08/02/20 12:30 Phenobarbital Sodium 130 Mg/Ml Vial IM 08/02/20 15:31 Q3H [facility] Protocol Sodium Chloride 3 ml 08/02/20 01:13 08/02/20 08:25 0.9 % Sodium Chloride Flush 3 Ml Syringe IVFLUSH Not Given QSHIFT [facility] Thiamine HCl 100 mg 08/02/20 09:00 08/02/20 09:32 Thiamine Hcl 100 Mg Tablet PO 08/04/20 09:01 100 mg DAILY PATI Administration Home Medications Medication Instructions Recorded Confirmed Last Taken Type No Known Home Meds 08/02/20 08/02/20 Unknown History Physical Exam Vital Signs: Vital Signs: Last Vital Signs Temp 96.2 F L 08/02/20 08:00 Pulse 96 08/02/20 10:00 Resp 16 08/02/20 08:00 BP 99/58 L 08/02/20 10:00 Pulse Ox 96 08/02/20 08:00 Body Mass Index 26.6 GENERAL APPEARANCE: in no acute distress, pleasant. NECK: no carotid bruit, no jugular venous distention. SKIN: no suspicious lesions, warm and dry. HEART: no murmurs, regular rate and rhythm. LUNGS: clear to auscultation bilaterally. ABDOMEN: soft, nontender. EXTREMITIES: no edema. PERIPHERAL PULSES: equal. NEUROLOGIC: No gross deficits, AAO X 3 Results Labs and Meds Result diagrams: 08/01/20 23:46 08/02/20 06:10 Lab results: Laboratory Results - last 24 hr 08/01/20 08/01/20 08/01/20 23:46 23:46 23:46 WBC 8.6 RBC 2.94 L Hgb 10.4 L Hct 30.5 L MCV 103.7 H MCH 35.4 H MCHC 34.1 RDW 16.6 H Plt Count 176 MPV 10.1 Immature Gran % (Auto) 0.3 Neut % (Auto) 74.3 H Lymph % (Auto) 12.8 L [place] % (Auto) 10.3 Eos % (Auto) 1.6 Baso % (Auto) 0.7 Lymph # (Auto) 1.1 L [place] # (Auto) 0.9 Eos # (Auto) 0.1 Baso # (Auto) 0.1 Abs Immat Gran (auto) 0.03 Absolute Neuts (auto) 6.4 Absolute Nucleated RBC 0.000 Nucleated RBC % (auto) 0.0 PT 18.7 H INR 1.6 H APTT 39.0 H Sodium 138 Potassium 3.7 Chloride 98 Carbon Dioxide 25 Anion Gap 19 BUN 16 Creatinine 1.15 Estim Creat Clear Calc 53.7 Estimated GFR 49 Random Glucose 126 H Fasting Glucose Calcium 8.9 Total Bilirubin 2.9 H AST 82 H ALT 36 H Alkaline Phosphatase 137 H Troponin I High Sens Total Protein 6.7 Albumin 3.3 L Vitamin B12 Folate Urine Color Urine Appearance Urine pH Ur Specific [place] Urine Protein Urine Glucose (UA) Urine Ketones Urine Blood Urine Nitrite Ur Leukocyte Esterase Urine RBC Urine WBC Ur Squamous Epith Cells Urine Bacteria Hyaline Casts Urine Mucus COVID-19 (REBECCA) COVID-19 Ynsect Com Blood Type Antibody Screen 08/01/20 08/01/20 08/02/20 23:47 23:47 00:57 WBC RBC Hgb Hct MCV MCH MCHC RDW Plt Count MPV Immature Gran % (Auto) Neut % (Auto) Lymph % (Auto) [place] % (Auto) Eos % (Auto) Baso % (Auto) Lymph # (Auto) [place] # (Auto) Eos # (Auto) Baso # (Auto) Abs Immat Gran (auto) Absolute Neuts (auto) Absolute Nucleated RBC Nucleated RBC % (auto) PT INR APTT Sodium Potassium Chloride Carbon Dioxide Anion Gap BUN Creatinine Estim Creat Clear Calc Estimated GFR Random Glucose Fasting Glucose Calcium Total Bilirubin AST ALT Alkaline Phosphatase Troponin I High Sens < 3.5 Total Protein Albumin Vitamin B12 Folate Urine Color Urine Appearance Urine pH Ur Specific [place] Urine Protein Urine Glucose (UA) Urine Ketones Urine Blood Urine Nitrite Ur Leukocyte Esterase Urine RBC Urine WBC Ur Squamous Epith Cells Urine Bacteria Hyaline Casts Urine Mucus COVID-19 (REBECCA) Negative COVID-19 Ynsect Com See Note Blood Type O Positive Antibody Screen NEGATIVE 08/02/20 08/02/20 08/02/20 02:01 06:10 06:10 WBC RBC Hgb Hct MCV MCH MCHC RDW Plt Count MPV Immature Gran % (Auto) Neut % (Auto) Lymph % (Auto) [place] % (Auto) Eos % (Auto) Baso % (Auto) Lymph # (Auto) [place] # (Auto) Eos # (Auto) Baso # (Auto) Abs Immat Gran (auto) Absolute Neuts (auto) Absolute Nucleated RBC Nucleated RBC % (auto) PT INR APTT Sodium 138 Potassium 3.4 Chloride 98 Carbon Dioxide 31 H Anion Gap 12 BUN 17 H Creatinine 1.62 H Estim Creat Clear Calc 38.2 Estimated GFR 33 Random Glucose Fasting Glucose 100 H Calcium 8.5 Total Bilirubin AST ALT Alkaline Phosphatase Troponin I High Sens Total Protein Albumin Vitamin B12 688 Folate 4.1 Urine Color YELLOW Urine Appearance HAZY Urine pH 5.5 Ur Specific [place] 1.025 Urine Protein TRACE Urine Glucose (UA) NEG Urine Ketones 15 Urine Blood NEG Urine Nitrite NEG Ur Leukocyte Esterase TRACE H Urine RBC 1-4 Urine WBC 5-9 H Ur Squamous Epith Cells 1+ Urine Bacteria 4+ Hyaline Casts 1-4 Urine Mucus 1+ COVID-19 (REBECCA) COVID-19 Clin Com Blood Type Antibody Screen Imaging Radiologist's impression: Impressions Femur X-Ray 08/01/20 22:38 IMPRESSION: Right femoral neck fracture. Hip/Pelvis X-Ray 08/01/20 22:38 IMPRESSION: Right femoral neck fracture. Chest X-Ray 08/01/20 22:49 IMPRESSION: Unremarkable examination. Assessment and Plan (1) Femoral neck fracture: Qualifiers: Encounter type: initial encounter Fracture type: closed Laterality: right Qualified Code(s): S72.001A - Fracture of unspecified part of neck of right femur, initial encounter for closed fracture Status: Acute (2) Abnormal ECG: Status: Acute 55-year-old female who is presenting with mechanical fall and femoral neck fracture. She has anterior T-wave inversions on the ECG. On repeat ECG there is no evolution of the changes. She is completely asymptomatic. Cardiac enzymes are normal. The differential with these changes include left ventricular hypertrophy, LAD territory ischemia, Takotsubo CM, pulmonary embolism and sometimes right ventricular issues like ARVD. Currently she is asymptomatic. I will do echocardiogram to assess for any wall motion abnormalities or right ventricular dysfunction. If echo is normal and she has no symptoms then I think we can proceed with surgery with intermediate risk for perioperative cardiovascular complications. On the other hand if there is significant abnormalities on the echocardiogram then we may have to change our management plan accordingly. Thank you for allowing me to participate in the care of your patient. Please feel free to contact me if you have any questions. Procedures Date of Service Date of Service: 08/02/20
[2020-08-02] MEDS: PHENobarbitaL sodium 130 MG/ML VIAL IM ×2 (13:08→16:27)
--- NOTE | 2020-08-02 14:32 | MHC.CLN ---
PT REPORTS INTENTIONAL WT LOSS OVER PAST 1.5 YEARS PT STATED SHE IS NOT INTERESTED IN WT GAIN AND WT MAINTENANCE IS GOAL AT THIS TIME PT DOES NOT TRIGGER FOR SIGNIFICANT WT LOSS
--- NOTE | 2020-08-02 15:40 | MHC.CM.PN ---
PER ORTHO PT WILL NOT HAVE SURGERY TODAY, PLAN IS FOR RIGHT HEMIARTHROPLASTY TOMORROW 08/03/20. PT AND FAMILY HESITANT ABOUT STR HOWEVER CM HAS ENCOURAGED FAMILY TO STR DUE TO PT NOT HAVING A PCP, PT REPORTED INSURANCE PLAN CHANGED AND SHE WAS ASSIGNED A PCP SHE HAS NEVER SEEN. PER PARTNER/FRIEND (LATHA) TOP CHOICES FOR STR ARE 1) [facility] AND 2) [facility], PER LATHA HE WILL LOOK FOR LETTER W/PT'S ASSIGNED PCP HOWEVER PT AND FAMILY GIVEN DIRECTIONS TO LOOK UP PCP'S LISTED UNDER PT'S INSURANCE AND CHOOSE ONE CLOSER TO HOME DUE TO PT NOT WANTING TO TRAVEL TO [place] FOR A PCP. CM WILL PLACE REFERRALS TO CHOSEN SNF'S AND CONT TO FOLLOW D/C NEEDS. CM MET W/PT TO [facility], PT GIVEN INFORMATION, ORIGINAL AND 3 COPIES, COPY UPLOADED TO [facility] AND PLACED IN CHART. HEALTH CARE AGENT: LATHA SAMAYOA [phone] ALTERNATE: JOJO GAGE [phone]
[2020-08-02 19:15] LABS: D Dimer 880 NG/ML
[2020-08-02] MEDS: PHENobarbitaL 15 MG TABLET 45 MG PO (20:43)
[2020-08-03 03:02] VITALS: BP 92/50; PULSE 70; RESP 16; TEMP 36.3; O2SAT 95
[2020-08-03 06:25] LABS: MANUAL DIFF FLAG NO
[2020-08-03 06:51] LABS: Basophils Absolute Auto 0.1 X10*3/uL (0.0-0.2); Basophils Percent Auto 0.6 % (0-2); Eosinophils Absolute Auto 0.3 X10*3/uL (0.0-0.4); Eosinophils Percent Auto 4.1 % (0-4); Hematocrit 27.3 % (37-47); Hemoglobin 9.2 g/dl (12.0-16.0); Imm Gran Abs Auto 0.03 X10*3/uL (0.00-0.03); Imm Gran Pct Auto 0.4 % (0.0-0.4); Lymphocytes Absolute Auto 1.8 X10*3/uL (1.2-4.9); Lymphocytes Percent Auto 22.2 % (20-40); Mean Corpuscular HGB Conc 33.7 g/dl (31.0-35.0); Mean Corpuscular Hemoglobin 35.4 pg (27.0-33.0); Mean Platelet Volume 10.7 fL (9.4-12.3); Monocytes Absolute Auto 0.9 X10*3/uL (0.1-1.2); Monocytes Percent Auto 11.5 % (2-11); Neutrophils Percent Auto 61.2 % (45-73); Platelet Count 134 X10*3/uL (160-400); White Blood Count 8.1 X10*3/uL (4.8-10.8)
[2020-08-03 06:52] LABS: Anion Gap 12 (12-20); Blood Urea Nitrogen 21 mg/dL (9-16); Carbon Dioxide 25 mmol/L (22-29); Chloride 105 mmol/L (96-108); Creatinine Clr Calc Pharmacy 52.4; Estimated Glomerular Filt Rate 48; Glucose Fasting 84 mg/dL (60-99); Sodium 138 mmol/L (135-145)
--- NOTE | 2020-08-03 07:43 | PM.PNORT ---
Subjective Subjective Date of Service: 08/03/20 Interval history: Patient resting comfortably in bed. No overnight events. Pain is well managed. Physical Exam Vital Signs: Vital Signs: Last Vital Signs Temp 97.3 F 08/03/20 03:02 Pulse 70 08/03/20 03:02 Resp 16 08/03/20 03:02 BP 92/50 L 08/03/20 03:02 Pulse Ox 95 08/03/20 03:02 Body Mass Index 26.6 Const: General: cooperative, healthy appearing and no acute distress Resp: Effort & Inspection: normal respiratory effort and able to speak in complete sentences Cardio: Rate: regular rate Peripheral pulses: Peripheral pulses 2+ throughout GI: Palpation (GI): Soft to palpation Skin: Lesions: no lesions Rashes: no rashes Extrem: Other: Right lower extremity is shortened and externally rotated. Pain spike log roll. unable to perform a straight leg lift. Able to plantarflex and dorsiflex. Sensation intact. Pedal pulse intact. Progress Note: A&P Assessment and plan (1) Femoral neck fracture: Status: Acute Assessment and Plan: Pain management RLL NWB Surgical planning for right hip hemiarthroplasty pending cardiology and medicine clearance. NPO after midnight Fall Risk Details Current Medications: Current Medications Generic Name Dose Route Start Last Admin Trade Name Freq PRN Reason Stop Dose Admin Acetaminophen 650 mg 08/02/20 01:13 Acetaminophen Supp 650 Mg Supp.Rect [place] Q6H PRN Pain, Mild (Pain Scale 1-3) Docusate Sodium 100 mg 08/02/20 09:00 08/02/20 20:42 Docusate Sodium 100 Mg Capsule PO 100 mg BID PATI Administration Folic Acid 1 mg 08/02/20 09:00 08/02/20 09:32 Folic Acid 1 Mg Tablet PO 08/04/20 09:01 1 mg DAILY PATI Administration Hydromorphone HCl 0.25 mg 08/02/20 01:13 Hydromorphone Hcl 0.5 Mg/0.5 Ml Syringe IVPUSH Q4H PRN Pain, Severe (Pain Scale 7-10) Sodium Chloride 1,000 mls @ 125 mls/hr 08/02/20 08:45 08/02/20 23:41 Ns IVCONT 125 mls/hr .Q8H PATI Administration Medication 1 each 08/02/20 09:00 No Benzodiazepines MISCELLANE DAILY PATI Naloxone HCl 0.2 mg 08/02/20 01:13 Naloxone Hcl 0.4 Mg/Ml Vial IVPUSH Q2M PRN Excessive sedation or RR < 8 Ondansetron HCl 4 mg 08/02/20 01:13 Ondansetron Hcl 4 Mg/2 Ml Vial IVPUSH Q8H PRN Nausea and Vomiting Oxycodone HCl 5 mg 08/02/20 01:13 08/02/20 18:23 Oxycodone Hcl Immed Release 5 Mg Tablet PO 5 mg Q4H PRN Administration Pain, Moderate (Pain Scale 4-6 Oxycodone HCl 10 mg 08/02/20 09:00 08/02/20 20:43 Oxycodone Hcl Er 10 Mg Tab.Er.12h PO 10 mg BID PATI Administration Phenobarbital 45 mg 08/02/20 21:00 08/02/20 20:43 Phenobarbital 15 Mg Tablet PO 08/04/20 09:01 45 mg BID PATI Administration Protocol Phenobarbital 30 mg 08/04/20 21:00 Phenobarbital 30 Mg Tablet PO 08/06/20 09:01 BID [facility] Protocol Phenobarbital 30 mg 08/07/20 09:00 Phenobarbital 30 Mg Tablet PO 08/08/20 09:01 DAILY [facility] Protocol Sodium Chloride 3 ml 08/02/20 01:13 08/03/20 06:56 0.9 % Sodium Chloride Flush 3 Ml Syringe IVFLUSH Not Given QSHIFT [facility] Thiamine HCl 100 mg 08/02/20 09:00 08/02/20 09:32 Thiamine Hcl 100 Mg Tablet PO 08/04/20 09:01 100 mg DAILY PATI Administration Time Spent With Patient Time: Total time spent is greater than 50% in coordination of care (as documented) at patient's floor/unit and/or counseling patient: Time with patient: less than 15 minutes Procedures Date of Service Date of Service: 08/03/20
[2020-08-03] MEDS: 0.9 % Sodium Chloride 1,000 ML 125 ML IVCONT ×2 (07:49→17:23)
[2020-08-03 08:00] VITALS: BP 90/54; PULSE 85; RESP 16; TEMP 36.3; O2SAT 95
[2020-08-03] MEDS: Folic Acid 1 MG TABLET PO (08:54)
[2020-08-03] MEDS: PHENobarbitaL 15 MG TABLET 45 MG PO ×2 (08:54→20:04)
[2020-08-03] MEDS: Docusate Sodium 100 MG CAPSULE PO ×2 (08:54→20:04)
[2020-08-03] MEDS: Thiamine HCL 100 MG TABLET PO (08:54)
[2020-08-03] MEDS: oxyCODONE HCl ER 10 MG TAB.ER.12H PO ×2 (08:55→20:56)
[2020-08-03] MEDS: oxyCODONE HCl Immed Release 5 MG TABLET PO ×3 (11:39→20:03)
--- NOTE | 2020-08-03 11:42 | HO.PM.IMPN ---
Subjective Subjective Date of Service: 08/03/20 Interval History: Seen in f/u for pre-op, hip fracture surgery planned tomorrow. Pain is controlled. No chest pain and no sob DDimers is high. Review of Systems Gen: no fever Resp: no sob, no cough CV: no chest, no SHARIF, no leg edema GI: No n/v, no abd pain Neuro: No confusion MSKl : hip pain with movement Physical Exam Vital Signs: Vital Signs: Last Vital Signs Temp 97.4 F 08/03/20 08:00 Pulse 85 08/03/20 08:00 Resp 16 08/03/20 08:00 BP 90/54 L 08/03/20 08:00 Pulse Ox 95 08/03/20 08:00 Body Mass Index 26.6 Constitutional Awake and Alert, No apparent distress Neck Supple, No lymphadenopathy Cardiovascular RRR, No M/R/G, S1 S2, No S3 S4, No pedal edema Respiratory Lungs clear, No respiratory distress Gastrointestinal Non tender, Non-distended Skin No rash Neurological Alert & oriented x3 Psychological Appropriate affect Const: Other: Constitutional Awake and Alert, No apparent distress HEENT-normal eye movment, no clear jaundice Neck Supple, No lymphadenopathy Cardiovascular RRR, No M/R/G, S1 S2, No S3 S4, No pedal edema Respiratory Lungs clear, No respiratory distress Gastrointestinal Non tender, Non-distended Skin No rash Neurological Alert & oriented x3 Psychological Appropriate affect Limitations: no limitations Objective Data Current Medications Generic Name Dose Route Start Last Admin Trade Name Freq PRN Reason Stop Dose Admin Acetaminophen 650 mg 08/02/20 01:13 Acetaminophen Supp 650 Mg Supp.Rect [place] Q6H PRN Pain, Mild (Pain Scale 1-3) Docusate Sodium 100 mg 08/02/20 09:00 08/03/20 08:54 Docusate Sodium 100 Mg Capsule PO 100 mg BID PATI Administration Folic Acid 1 mg 08/02/20 09:00 08/03/20 08:54 Folic Acid 1 Mg Tablet PO 08/04/20 09:01 1 mg DAILY PATI Administration Hydromorphone HCl 0.25 mg 08/02/20 01:13 Hydromorphone Hcl 0.5 Mg/0.5 Ml Syringe IVPUSH Q4H PRN Pain, Severe (Pain Scale 7-10) Sodium Chloride 1,000 mls @ 125 mls/hr 08/02/20 08:45 08/03/20 07:49 Ns IVCONT 125 mls/hr .Q8H [facility] Administration Medication 1 each 08/02/20 09:00 No Benzodiazepines MISCELLANE DAILY [facility] Naloxone HCl 0.2 mg 08/02/20 01:13 Naloxone Hcl 0.4 Mg/Ml Vial IVPUSH Q2M PRN Excessive sedation or RR < 8 Ondansetron HCl 4 mg 08/02/20 01:13 Ondansetron Hcl 4 Mg/2 Ml Vial IVPUSH Q8H PRN Nausea and Vomiting Oxycodone HCl 5 mg 08/02/20 01:13 08/03/20 11:39 Oxycodone Hcl Immed Release 5 Mg Tablet PO 5 mg Q4H PRN Administration Pain, Moderate (Pain Scale 4-6 Oxycodone HCl 10 mg 08/02/20 09:00 08/03/20 08:55 Oxycodone Hcl Er 10 Mg Tab.Er.12h PO 10 mg BID [facility] Administration Phenobarbital 45 mg 08/02/20 21:00 08/03/20 08:54 Phenobarbital 15 Mg Tablet PO 08/04/20 09:01 45 mg BID [facility] Administration Protocol Phenobarbital 30 mg 08/04/20 21:00 Phenobarbital 30 Mg Tablet PO 08/06/20 09:01 BID [facility] Protocol Phenobarbital 30 mg 08/07/20 09:00 Phenobarbital 30 Mg Tablet PO 08/08/20 09:01 DAILY [facility] Protocol Sodium Chloride 3 ml 08/02/20 01:13 08/03/20 06:56 0.9 % Sodium Chloride Flush 3 Ml Syringe IVFLUSH Not Given QSHIFT [facility] Thiamine HCl 100 mg 08/02/20 09:00 08/03/20 08:54 Thiamine Hcl 100 Mg Tablet PO 08/04/20 09:01 100 mg DAILY [facility] Administration Labs CBC & Chem 7: 08/03/20 06:17 08/03/20 06:17 Microbiology Microbiology Results: Microbiology 08/02/20 Unknown Urine [place] Urine Culture - Preliminary Culture in progress. Assessment and Plan (1) Femoral neck fracture: Status: Acute (2) Chronic alcohol use: Status: Inactive (3) Fall (on) (from) other stairs and steps, initial encounter: Status: Acute Assessment and Plan: 55 year female with alcohol dependency here with mechanical fall and righ hip fracture 1/Right hip fracture--surgery is planned, I would determine her cdardiac risk to be low, however her ECG and is clearly abnormal with anterior TWI and no prior for comparaison and therefore I suggest cardiology to assess her as well before surgery. See cardiology note for surgery. 2/Alcohol dependence--high risk for withdrawal and would suggest premptively treating with Phenobarbital, supplemental folic acid, thiamine 3/CHRIS--pre renal. Resolved 4/Coagulaopathy with INR 1.6 d/t chronic liver disease and likely cirrhosis of liver -Vitamin K 10 yesterday, repeat INR tomorrow 5/ Elevated LFTs due to chronic liver disease/cirrhosis-should get US of liver before discharge 6/Hypotension-- resolved, continue IVF 7/Elevated DDimer--CT chest to rule out PE 8/Anemia--Transfuse if Hgn less than 8 Wiill follow. Thanks
[2020-08-03 11:52] VITALS: BP 94/61; PULSE 79; RESP 18; TEMP 36.6; O2SAT 96
[2020-08-03] MEDS: iohexoL 350 MG/ML 100 ML INFUS..BTL IV (14:22)
[2020-08-03 15:22] VITALS: BP 96/55; PULSE 89; RESP 20; TEMP 36.6; O2SAT 94
[2020-08-03 19:10] VITALS: BP 113/66; PULSE 97; RESP 20; TEMP 37.3; O2SAT 96
[2020-08-04] VITALS (12 sets, daily range): BP systolic 90–118; BP diastolic 56–79; PULSE 78–99; RESP 15–24; TEMP 36–36.8; O2SAT 94–99
[2020-08-04] MEDS: 0.9 % Sodium Chloride 1,000 ML 125 ML IVCONT ×3 (01:20→17:16)
[2020-08-04] MEDS: oxyCODONE HCl Immed Release 5 MG TABLET PO ×2 (06:40→18:08)
[2020-08-04 06:56] LABS: INTERNATIONAL NORM RATIO 1.6 (0.9-1.1); Prothrombin Time 18.6 SEC (10.8-13.0)
[2020-08-04 06:57] LABS: Basophils Percent Auto 0.7 % (0-2); Eosinophils Absolute Auto 0.3 X10*3/uL (0.0-0.4); Eosinophils Percent Auto 4.5 % (0-4); Hematocrit 28.1 % (37-47); Hemoglobin 9.6 g/dl (12.0-16.0); Imm Gran Abs Auto 0.02 X10*3/uL (0.00-0.03); Imm Gran Pct Auto 0.3 % (0.0-0.4); Lymphocytes Absolute Auto 1.4 X10*3/uL (1.2-4.9); MANUAL DIFF FLAG NO; Mean Corpuscular HGB Conc 34.2 g/dl (31.0-35.0); Mean Corpuscular Hemoglobin 35.8 pg (27.0-33.0); Mean Corpuscular Volume 104.9 fL (80-98); Mean Platelet Volume 10.9 fL (9.4-12.3); Monocytes Absolute Auto 0.7 X10*3/uL (0.1-1.2); Monocytes Percent Auto 11.3 % (2-11); Neutrophils Absolute Auto 3.6 X10*3/uL (2.0-8.3); Neutrophils Percent Auto 59.2 % (45-73); Platelet Count 144 X10*3/uL (160-400); Red Blood Count 2.68 X10*6/uL (4.20-5.50); Red Cell Distribution Width 16.8 % (11.0-16.0)
[2020-08-04 07:14] LABS: Anion Gap 12 (12-20); Blood Urea Nitrogen 18 mg/dL (9-16); Calcium 7.7 mg/dL (8.4-10.2); Carbon Dioxide 21 mmol/L (22-29); Chloride 108 mmol/L (96-108); Creatinine Clr Calc Pharmacy 85.9; Estimated Glomerular Filt Rate > 60; Glucose Fasting 73 mg/dL (60-99); Sodium 137 mmol/L (135-145)
[2020-08-04] MEDS: Thiamine HCL 100 MG TABLET PO (08:23)
[2020-08-04] MEDS: PHENobarbitaL 15 MG TABLET 45 MG PO (08:23)
[2020-08-04] MEDS: Folic Acid 1 MG TABLET PO (08:23)
[2020-08-04] MEDS: oxyCODONE HCl ER 10 MG TAB.ER.12H PO ×2 (08:23→22:11)
[2020-08-04] MEDS: Docusate Sodium 100 MG CAPSULE PO ×2 (08:23→20:24)
--- NOTE | 2020-08-04 09:19 | PM.PNCARD ---
Subjective Subjective Date of Service: 08/04/20 Interval history: Waiting for surgery. CT PA did not show PE. Physical Exam Vital Signs: Last Vital Signs Temp 96.9 F 08/04/20 08:00 Pulse 79 08/04/20 08:00 Resp 24 H 08/04/20 08:00 BP 115/64 08/04/20 08:00 Pulse Ox 96 08/04/20 08:00 Body Mass Index 26.6 GENERAL APPEARANCE: in no acute distress, pleasant. NECK: no carotid bruit, no jugular venous distention. SKIN: no suspicious lesions, warm and dry. HEART: no murmurs, regular rate and rhythm. LUNGS: clear to auscultation bilaterally. ABDOMEN: soft, nontender. EXTREMITIES: no edema. PERIPHERAL PULSES: equal. NEUROLOGIC: No gross deficits, AAO X 3 Results Labs and Meds Result diagrams: 08/04/20 06:07 08/04/20 06:07 Lab results: Laboratory Results - last 24 hr 08/04/20 08/04/20 08/04/20 06:07 06:07 06:07 WBC 6.0 RBC 2.68 L Hgb 9.6 L Hct 28.1 L MCV 104.9 H MCH 35.8 H MCHC 34.2 RDW 16.8 H Plt Count 144 L MPV 10.9 Immature Gran % (Auto) 0.3 Neut % (Auto) 59.2 Lymph % (Auto) 24.0 [place] % (Auto) 11.3 H Eos % (Auto) 4.5 H Baso % (Auto) 0.7 Lymph # (Auto) 1.4 [place] # (Auto) 0.7 Eos # (Auto) 0.3 Baso # (Auto) 0.0 Abs Immat Gran (auto) 0.02 Absolute Neuts (auto) 3.6 Absolute Nucleated RBC 0.000 Nucleated RBC % (auto) 0.0 PT 18.6 H INR 1.6 H Sodium 137 Potassium 4.0 Chloride 108 Carbon Dioxide 21 L Anion Gap 12 BUN 18 H Creatinine 0.72 Estim Creat Clear Calc 85.9 Estimated GFR > 60 Fasting Glucose 73 Calcium 7.7 L Imaging Radiologist's impression: Impressions Chest CTA 08/03/20 14:13 IMPRESSION: 1. No evidence for pulmonary embolism. 2. A few scattered groundglass opacities as well as bibasilar atelectasis and trace pleural effusions are nonspecific, but suggest a mild infectious/inflammatory process. These findings can be monitored in the short-term with chest radiographs as clinically indicated. 3. Partial visualization of small left thyroid nodule. No follow-up imaging is recommended. VTE: Negative. Progress Note: A&P Assessment and plan (1) Abnormal ECG: Status: Acute (2) Femoral neck fracture: Status: Acute Assessment and Plan: 55-year-old female with fall and right neck of femur fracture. ECG has been abnormal and she has anterior T wave inversions. There are not dynamic changes. No CP/ SOB. Ruled out for PE. No RWMA on echo. negative biomarkers. She is low to intermediate risk for surgery. Please page if any questions. Fall Risk Details Current Medications: Current Medications Generic Name Dose Route Start Last Admin Trade Name Freq PRN Reason Stop Dose Admin Acetaminophen 650 mg 08/02/20 01:13 Acetaminophen Supp 650 Mg Supp.Rect [place] Q6H PRN Pain, Mild (Pain Scale 1-3) Docusate Sodium 100 mg 08/02/20 09:00 08/04/20 08:23 Docusate Sodium 100 Mg Capsule PO 100 mg BID PATI Administration Hydromorphone HCl 0.25 mg 08/02/20 01:13 Hydromorphone Hcl 0.5 Mg/0.5 Ml Syringe IVPUSH Q4H PRN Pain, Severe (Pain Scale 7-10) Sodium Chloride 1,000 mls @ 125 mls/hr 08/02/20 08:45 08/04/20 08:06 Ns IVCONT 125 mls/hr .Q8H PATI Administration Medication 1 each 08/02/20 09:00 No Benzodiazepines MISCELLANE DAILY PATI Naloxone HCl 0.2 mg 08/02/20 01:13 Naloxone Hcl 0.4 Mg/Ml Vial IVPUSH Q2M PRN Excessive sedation or RR < 8 Ondansetron HCl 4 mg 08/02/20 01:13 Ondansetron Hcl 4 Mg/2 Ml Vial IVPUSH Q8H PRN Nausea and Vomiting Oxycodone HCl 5 mg 08/02/20 01:13 08/04/20 06:40 Oxycodone Hcl Immed Release 5 Mg Tablet PO 5 mg Q4H PRN Administration Pain, Moderate (Pain Scale 4-6 Oxycodone HCl 10 mg 08/02/20 09:00 06/04/21 08:23 Oxycodone Hcl Er 10 Mg Tab.Er.12h PO 10 mg BID PATI Administration Phenobarbital 30 mg 08/04/20 21:00 Phenobarbital 30 Mg Tablet PO 08/06/20 09:01 BID [facility] Protocol Phenobarbital 30 mg 08/07/20 09:00 Phenobarbital 30 Mg Tablet PO 08/08/20 09:01 DAILY [facility] Protocol Sodium Chloride 3 ml 08/02/20 01:13 08/04/20 07:52 0.9 % Sodium Chloride Flush 3 Ml Syringe IVFLUSH Not Given QSHIFT [facility] Time Spent With Patient Time: Total time spent is greater than 50% in coordination of care (as documented) at patient's floor/unit and/or counseling patient: Time with patient: less than 15 minutes Procedures Date of Service Date of Service: 08/04/20
--- NOTE | 2020-08-04 11:00 | HO.PM.IMPN ---
Subjective Subjective Date of Service: 08/04/20 Interval History: Seen in f/u for pre-op, hip fracture surgery planned tomorrow. Pain is controlled. No chest pain and no sob DDimers is high. Review of Systems Gen: no fever Resp: no sob, no cough CV: no chest, no SHARIF, no leg edema GI: No n/v, no abd pain Neuro: No confusion MSKl : hip pain with movement Physical Exam Vital Signs: Vital Signs: Last Vital Signs Temp 96.9 F 08/04/20 08:00 Pulse 79 08/04/20 08:00 Resp 24 H 08/04/20 08:00 BP 115/64 08/04/20 08:00 Pulse Ox 96 08/04/20 08:00 Body Mass Index 26.6 Const: Other: Constitutional Awake and Alert, No apparent distress HEENT-normal eye movment, no clear jaundice Neck Supple, No lymphadenopathy Cardiovascular RRR, No M/R/G, S1 S2, No S3 S4, No pedal edema Respiratory Lungs clear, No respiratory distress Gastrointestinal Non tender, Non-distended Skin No rash Neurological Alert & oriented x3 Psychological Appropriate affect Objective Data Current Medications Generic Name Dose Route Start Last Admin Trade Name Freq PRN Reason Stop Dose Admin Acetaminophen 650 mg 08/02/20 01:13 Acetaminophen Supp 650 Mg Supp.Rect [place] Q6H PRN Pain, Mild (Pain Scale 1-3) Docusate Sodium 100 mg 08/02/20 09:00 08/04/20 08:23 Docusate Sodium 100 Mg Capsule PO 100 mg BID PATI Administration Hydromorphone HCl 0.25 mg 08/02/20 01:13 Hydromorphone Hcl 0.5 Mg/0.5 Ml Syringe IVPUSH Q4H PRN Pain, Severe (Pain Scale 7-10) Sodium Chloride 1,000 mls @ 125 mls/hr 08/02/20 08:45 08/04/20 08:06 Ns IVCONT 125 mls/hr .Q8H PATI Administration Medication 1 each 08/02/20 09:00 No Benzodiazepines MISCELLANE DAILY PATI Naloxone HCl 0.2 mg 08/02/20 01:13 Naloxone Hcl 0.4 Mg/Ml Vial IVPUSH Q2M PRN Excessive sedation or RR < 8 Ondansetron HCl 4 mg 08/02/20 01:13 Ondansetron Hcl 4 Mg/2 Ml Vial IVPUSH Q8H PRN Nausea and Vomiting Oxycodone HCl 5 mg 08/02/20 01:13 08/04/20 06:40 Oxycodone Hcl Immed Release 5 Mg Tablet PO 5 mg Q4H PRN Administration Pain, Moderate (Pain Scale 4-6 Oxycodone HCl 10 mg 08/02/20 09:00 08/04/20 08:23 Oxycodone Hcl Er 10 Mg Tab.Er.12h PO 10 mg BID PATI Administration Phenobarbital 30 mg 08/04/20 21:00 Phenobarbital 30 Mg Tablet PO 08/06/20 09:01 BID [facility] Protocol Phenobarbital 30 mg 08/07/20 09:00 Phenobarbital 30 Mg Tablet PO 08/08/20 09:01 DAILY [facility] Protocol Sodium Chloride 3 ml 08/02/20 01:13 08/04/20 07:52 0.9 % Sodium Chloride Flush 3 Ml Syringe IVFLUSH Not Given QSHIFT [facility] Labs CBC & Chem 7: 08/04/20 06:07 08/04/20 06:07 Microbiology Microbiology Results: Microbiology 08/02/20 Unknown Urine [place] Urine Culture - Preliminary Gram negative truman Assessment and Plan (1) Femoral neck fracture: Status: Acute (2) Chronic alcohol use: Status: Inactive (3) Fall (on) (from) other stairs and steps, initial encounter: Status: Acute Assessment and Plan: 55 year female with alcohol dependency here with mechanical fall and righ hip fracture 1/Right hip fracture--surgery is planned, I would determine her cdardiac risk to be low, however her ECG and is clearly abnormal with anterior TWI and no prior for comparaison and therefore I suggest cardiology to assess her as well before surgery. Cardiology has risk stratified for surgery and deemed low to intermediate risk 2/Alcohol dependence--high risk for withdrawal and would suggest premptively treating with Phenobarbital, supplemental folic acid, thiamine--so far no withdrawal 3/CHRIS--pre renal. Resolved 4/Coagulaopathy with INR 1.6 d/t chronic liver disease and likely cirrhosis of liver -Vitamin K 10 yesterday, repeat INR tomorrow 5/ Elevated LFTs due to chronic liver disease/cirrhosis-should get US of liver before discharge 6/Hypotension-- resolved, continue IVF 7/Elevated DDimer--No PE on CTA 8/Anemia--Transfuse if Hgb less than 8 Wiill follow. Thanks
--- NOTE | 2020-08-04 13:00 | PC.NURSE ---
Dr. Daniels at bedside. Notified of lung sound assessment, Right clear, Left inspiratory wheezing. No new orders. Okay to proceed with surgery.
--- NOTE | 2020-08-04 13:06 | P.CONAN_ITS ---
[facility] Active Problems Active Problems: All Active Problems (Updated 08/02/20 @ 12:11 by Paul ojeda MD) Abnormal ECG (Acute) Femoral neck fracture (Acute) Fall (on) (from) other stairs and steps, initial encounter (Acute) Past Medical History Medical History Chronic alcohol use No known health problems Functional capacity: independent ambulation Social History Social History Household Members: Significant Other Housing: House Do you presently have visiting nurse or other home services: No Patient Tobacco Use Status: Current everyday Tobacco user Tobacco use type: Cigarette Cigarettes Per Day: 10 Years Smoked: 30 Smoked in Last 30 Days: Yes Patient Interested in Nicotine Replacement: No Patient Given Instructions on How to Stop Smoking: No Second Hand Smoke Exposure: No Use of substances other than those prescribed or required for medical reasons: No Substance Use Type: Marijuana Substance Use Frequency: Occasionally Last Used Substance: Days (ago) Currently Displaying Signs/Symptoms of Drug Intoxication Withdrawal: No Any prior treatment program specific to substance use: No Have you been hit, kicked, punched, or otherwise hurt by someone within the past year? If so, by whom?: No Do you feel safe in your current relationship?: No Current Relationship Is there a partner from a previous relationship who is making you feel unsafe now?: No Are you made to feel afraid or neglected: No Are you DNR?: No Advance Directives: No Advance Directives Information Provided: Yes Do you have thoughts of harming others: None Do you have a plan to hurt others: No Plan Recently lost weight without trying: Yes How much weight loss: 14-23 pounds Eating poorly because of decreased appetite: No Nutrition screen score: 4 Nutrition Risks: No Nutritional Risk Patient : No : No Poor oral hygiene: No service: No Current occupational status: unemployed Meds Allergies Allergy/AdvReac Type Severity Reaction Status Date / Time Penicillins [PENICILLINS] Allergy Unknown UNKNOWN/CHI Verified 08/02/20 02:28 LDHOOD cillin family Allergy Unknown Unknown Uncoded 08/02/20 02:28 Active Medications: Current Medications Generic Name Dose Route Start Last Admin Trade Name Freq PRN Reason Stop Dose Admin Acetaminophen 650 mg 08/02/20 01:13 Acetaminophen Supp 650 Mg Supp.Rect [place] Q6H PRN Pain, Mild (Pain Scale 1-3) Docusate Sodium 100 mg 08/02/20 09:00 08/04/20 08:23 Docusate Sodium 100 Mg Capsule PO 100 mg BID [facility] Administration Hydromorphone HCl 0.25 mg 08/02/20 01:13 Hydromorphone Hcl 0.5 Mg/0.5 Ml Syringe IVPUSH Q4H PRN Pain, Severe (Pain Scale 7-10) Sodium Chloride 1,000 mls @ 125 mls/hr 08/02/20 08:45 08/04/20 08:06 Ns IVCONT 125 mls/hr .Q8H [facility] Administration Medication 1 each 08/02/20 09:00 No Benzodiazepines MISCELLANE DAILY [facility] Naloxone HCl 0.2 mg 08/02/20 01:13 Naloxone Hcl 0.4 Mg/Ml Vial IVPUSH Q2M PRN Excessive sedation or RR < 8 Ondansetron HCl 4 mg 08/02/20 01:13 Ondansetron Hcl 4 Mg/2 Ml Vial IVPUSH Q8H PRN Nausea and Vomiting Oxycodone HCl 5 mg 08/02/20 01:13 08/04/20 06:40 Oxycodone Hcl Immed Release 5 Mg Tablet PO 5 mg Q4H PRN Administration Pain, Moderate (Pain Scale 4-6 Oxycodone HCl 10 mg 08/02/20 09:00 08/04/20 08:23 Oxycodone Hcl Er 10 Mg Tab.Er.12h PO 10 mg BID PATI Administration Phenobarbital 30 mg 08/04/20 21:00 Phenobarbital 30 Mg Tablet PO 08/06/20 09:01 BID [facility] Protocol Phenobarbital 30 mg 08/07/20 09:00 Phenobarbital 30 Mg Tablet PO 08/08/20 09:01 DAILY [facility] Protocol Sodium Chloride 3 ml 08/02/20 01:13 08/04/20 07:52 0.9 % Sodium Chloride Flush 3 Ml Syringe IVFLUSH Not Given QSHIFT [facility] Home Medications Medication Instructions Recorded Confirmed Last Taken Type No Known Home Meds 08/02/20 08/02/20 Unknown History Exam Exam Date and Time: August 04, 2020 1306 Height,Weight and Vital Signs: Height 5 ft 4 in Weight 70.307 kg Last Vital Signs Temp 98.2 F 08/04/20 12:36 Pulse 80 08/04/20 12:36 Resp 16 08/04/20 12:36 BP 111/73 08/04/20 12:36 Pulse Ox 95 08/04/20 12:36 Pertinent Lab Results Pertinent Lab Results: Laboratory Tests 08/01/20 08/01/20 08/01/20 23:46 23:46 23:46 WBC 8.6 RBC 2.94 L Hgb 10.4 L Hct 30.5 L MCV 103.7 H MCH 35.4 H MCHC 34.1 RDW 16.6 H Plt Count 176 MPV 10.1 Immature Gran % (Auto) 0.3 Neut % (Auto) 74.3 H Lymph % (Auto) 12.8 L Ocean % (Auto) 10.3 Eos % (Auto) 1.6 Baso % (Auto) 0.7 Lymph # (Auto) 1.1 L [place] # (Auto) 0.9 Eos # (Auto) 0.1 Baso # (Auto) 0.1 Abs Immat Gran (auto) 0.03 Absolute Neuts (auto) 6.4 Absolute Nucleated RBC 0.000 Nucleated RBC % (auto) 0.0 PT 18.7 H INR 1.6 H APTT 39.0 H D-Dimer Sodium 138 Potassium 3.7 Chloride 98 Carbon Dioxide 25 Anion Gap 19 BUN 16 Creatinine 1.15 Estim Creat Clear Calc 53.7 Estimated GFR 49 Random Glucose 126 H Fasting Glucose Calcium 8.9 Total Bilirubin 2.9 H AST 82 H ALT 36 H Alkaline Phosphatase 137 H Troponin I High Sens Total Protein 6.7 Albumin 3.3 L Vitamin B12 Folate Urine Color Urine Appearance Urine pH Ur Specific [place] Urine Protein Urine Glucose (UA) Urine Ketones Urine Blood Urine Nitrite Ur Leukocyte Esterase Urine RBC Urine WBC Ur Squamous Epith Cells Urine Bacteria Hyaline Casts Urine Mucus COVID-19 (REBECCA) COVID-19 Clin Com Blood Type Antibody Screen 08/01/20 08/01/20 08/02/20 23:47 23:47 00:57 WBC RBC Hgb Hct MCV MCH MCHC RDW Plt Count MPV Immature Gran % (Auto) Neut % (Auto) Lymph % (Auto) Ocean % (Auto) Eos % (Auto) Baso % (Auto) Lymph # (Auto) Ocean # (Auto) Eos # (Auto) Baso # (Auto) Abs Immat Gran (auto) Absolute Neuts (auto) Absolute Nucleated RBC Nucleated RBC % (auto) PT INR APTT D-Dimer Sodium Potassium Chloride Carbon Dioxide Anion Gap BUN Creatinine Estim Creat Clear Calc Estimated GFR Random Glucose Fasting Glucose Calcium Total Bilirubin AST ALT Alkaline Phosphatase Troponin I High Sens < 3.5 Total Protein Albumin Vitamin B12 Folate Urine Color Urine Appearance Urine pH Ur Specific [place] Urine Protein Urine Glucose (UA) Urine Ketones Urine Blood Urine Nitrite Ur Leukocyte Esterase Urine RBC Urine WBC Ur Squamous Epith Cells Urine Bacteria Hyaline Casts Urine Mucus COVID-19 (REBECCA) Negative COVID-19 Clin Com See Note Blood Type O Positive Antibody Screen NEGATIVE 08/02/20 08/02/20 08/02/20 02:01 06:10 06:10 WBC RBC Hgb Hct MCV MCH MCHC RDW Plt Count MPV Immature Gran % (Auto) Neut % (Auto) Lymph % (Auto) Ocean % (Auto) Eos % (Auto) Baso % (Auto) Lymph # (Auto) [place] # (Auto) Eos # (Auto) Baso # (Auto) Abs Immat Gran (auto) Absolute Neuts (auto) Absolute Nucleated RBC Nucleated RBC % (auto) PT INR APTT D-Dimer Sodium 138 Potassium 3.4 Chloride 98 Carbon Dioxide 31 H Anion Gap 12 BUN 17 H Creatinine 1.62 H Estim Creat Clear Calc 38.2 Estimated GFR 33 Random Glucose Fasting Glucose 100 H Calcium 8.5 Total Bilirubin AST ALT Alkaline Phosphatase Troponin I High Sens Total Protein Albumin Vitamin B12 688 Folate 4.1 Urine Color YELLOW Urine Appearance HAZY Urine pH 5.5 Ur Specific [place] 1.025 Urine Protein TRACE Urine Glucose (UA) NEG Urine Ketones 15 Urine Blood NEG Urine Nitrite NEG Ur Leukocyte Esterase TRACE H Urine RBC 1-4 Urine WBC 5-9 H Ur Squamous Epith Cells 1+ Urine Bacteria 4+ Hyaline Casts 1-4 Urine Mucus 1+ COVID-19 (REBECCA) COVID-19 Clin Com Blood Type Antibody Screen 08/02/20 08/03/20 08/03/20 18:50 06:17 06:17 WBC 8.1 RBC 2.60 L Hgb 9.2 L Hct 27.3 L MCV 105.0 H MCH 35.4 H MCHC 33.7 RDW 17.0 H Plt Count 134 L MPV 10.7 Immature Gran % (Auto) 0.4 Neut % (Auto) 61.2 Lymph % (Auto) 22.2 Ocean % (Auto) 11.5 H Eos % (Auto) 4.1 H Baso % (Auto) 0.6 Lymph # (Auto) 1.8 Ocean # (Auto) 0.9 Eos # (Auto) 0.3 Baso # (Auto) 0.1 Abs Immat Gran (auto) 0.03 Absolute Neuts (auto) 5.0 Absolute Nucleated RBC 0.000 Nucleated RBC % (auto) 0.0 PT INR APTT D-Dimer 880 Sodium 138 Potassium 4.0 Chloride 105 Carbon Dioxide 25 Anion Gap 12 BUN 21 H Creatinine 1.18 Estim Creat Clear Calc 52.4 Estimated GFR 48 Random Glucose TNP Fasting Glucose 84 Calcium 8.0 L Total Bilirubin AST ALT Alkaline Phosphatase Troponin I High Sens Total Protein Albumin Vitamin B12 Folate Urine Color Urine Appearance Urine pH Ur Specific [place] Urine Protein Urine Glucose (UA) Urine Ketones Urine Blood Urine Nitrite Ur Leukocyte Esterase Urine RBC Urine WBC Ur Squamous Epith Cells Urine Bacteria Hyaline Casts Urine Mucus COVID-19 (REBECCA) COVID-19 Clin Com Blood Type Antibody Screen 08/04/20 08/04/20 08/04/20 06:07 06:07 06:07 WBC 6.0 RBC 2.68 L Hgb 9.6 L Hct 28.1 L MCV 104.9 H MCH 35.8 H MCHC 34.2 RDW 16.8 H Plt Count 144 L MPV 10.9 Immature Gran % (Auto) 0.3 Neut % (Auto) 59.2 Lymph % (Auto) 24.0 Ocean % (Auto) 11.3 H Eos % (Auto) 4.5 H Baso % (Auto) 0.7 Lymph # (Auto) 1.4 [place] # (Auto) 0.7 Eos # (Auto) 0.3 Baso # (Auto) 0.0 Abs Immat Gran (auto) 0.02 Absolute Neuts (auto) 3.6 Absolute Nucleated RBC 0.000 Nucleated RBC % (auto) 0.0 PT 18.6 H INR 1.6 H APTT D-Dimer Sodium 137 Potassium 4.0 Chloride 108 Carbon Dioxide 21 L Anion Gap 12 BUN 18 H Creatinine 0.72 Estim Creat Clear Calc 85.9 Estimated GFR > 60 Random Glucose Fasting Glucose 73 Calcium 7.7 L Total Bilirubin AST ALT Alkaline Phosphatase Troponin I High Sens Total Protein Albumin Vitamin B12 Folate Urine Color Urine Appearance Urine pH Ur Specific [place] Urine Protein Urine Glucose (UA) Urine Ketones Urine Blood Urine Nitrite Ur Leukocyte Esterase Urine RBC Urine WBC Ur Squamous Epith Cells Urine Bacteria Hyaline Casts Urine Mucus COVID-19 (REBECCA) COVID-19 Clin Com Blood Type Antibody Screen Airway Mallampati Class: II TM Dist: >3cm Neck ROM: Full
--- NOTE | 2020-08-04 13:13 | MHC.SHP ---
Pre-Procedural Eval Section A The patient is an INPATIENT: Yes Changes since office visit: Yes Patient answered all questions; No Cold of Flu in the past 2 weeks, No New Medical Problems and No Changes in Medication The History & Physical has been completed within 30 days and I have reviewed it.: Yes Section B Chief Complaint: Right femoral neck fracture, anterior t wave inver Allergies: Allergies Allergy/AdvReac Type Severity Reaction Status Date / Time Penicillins [PENICILLINS] Allergy Unknown UNKNOWN/CHI Verified 08/02/20 02:28 LDHOOD cillin family Allergy Unknown Unknown Uncoded 08/02/20 02:28 Plan I have reviewed the history and physical and performed a pertinent physical examination on my patient. No changes have occurred unless specified.
--- NOTE | 2020-08-04 13:16 | PC.NURSE ---
Dr. Lima aware of patients INR 1.6.
--- NOTE | 2020-08-04 14:12 | MHC.CM.PN ---
Addendum entered by Bernice Hernández RN 08/04/20 15:00: [employer] NURSE CONTACTED AND WILL HAVE WEEKEND COVERAGE MEET W/PT REGARDING POSSIBLE MED ASSISTED TX. Original Note: EMR REVIEWED, PT STILL IN SURGERY/PACU AT TIME OF THIS NOTE, CM MET W/DTR/ALTERNATE HCP AND IS AWARE PT ACCEPTED AT [facility] WHICH IS PT'S FIRST CHOICE, [facility] UPDATED ON PT'S STATUS VIA [employer], CM DID ENCOURAGE PT'S DTR TO MAKE SURE PT SIGNS UP WITH NEW PCP SO SHE WILL BE ABLE TO HAVE HOME SERVICES AFTER LEAVING STR. D/C PLAN: [facility] FOR STR, [facility] FOR BLS TRANSPORT
--- NOTE | 2020-08-04 14:57 | MHC.CM.PN ---
PT'S DTR/HCP GIVEN LIST OF PCP'S INSURANCE WITH WRITTEN DIRECTIONS TO SIGN UP FOR PROVIDER.
--- NOTE | 2020-08-04 15:13 | PM.OP ---
Brief Operative Note Date of Service: 08/04/20 Pre-op diagnosis: displaced right femoral neck fracture Post-op diagnosis: same Procedure: right hip hemiarthroplasty Implants: Strnavi accolade2 #5 wtih + bipolar Surgeon: Jatin Lima MD Anesthesia: GETA and local Estimated blood loss (mL): 200 IV fluids (mL): 800 Pathology: other Condition: stable Disposition: PACU
[2020-08-04] MEDS: PHENobarbitaL 30 MG TABLET PO (20:24)
[2020-08-04] MEDS: ceFAZolin Sodium/Dextrose,Iso 2 GM/50 ML PIGGYBACK IV (20:24)
[2020-08-04] MEDS: 0.9 % Sodium Chloride Flush 3 ML SYRINGE IVFLUSH (20:34)
[2020-08-04] MEDS: HYDROmorphone HCl 0.5 MG/0.5 ML SYRINGE 0.25 MG IVPUSH (20:34)
[2020-08-04] MEDS: oxyCODONE HCl Immed Release 5 MG TABLET 10 MG PO (23:42)
[2020-08-05] VITALS (9 sets, daily range): BP systolic 92–105; BP diastolic 50–64; PULSE 85–102; RESP 15–20; TEMP 36.3–38.3; O2SAT 93–99
[2020-08-05] MEDS: HYDROmorphone HCl 0.5 MG/0.5 ML SYRINGE 0.25 MG IVPUSH ×3 (00:23→13:00)
[2020-08-05] MEDS: 0.9 % Sodium Chloride 1,000 ML 125 ML IVCONT (00:25)
[2020-08-05 07:17] LABS: MANUAL DIFF FLAG NO
[2020-08-05 07:22] LABS: Basophils Percent Auto 0.6 % (0-2); Eosinophils Absolute Auto 0.2 X10*3/uL (0.0-0.4); Eosinophils Percent Auto 2.7 % (0-4); Hematocrit 24.6 % (37-47); Hemoglobin 8.3 g/dl (12.0-16.0); Imm Gran Abs Auto 0.01 X10*3/uL (0.00-0.03); Imm Gran Pct Auto 0.1 % (0.0-0.4); Lymphocytes Percent Auto 15.4 % (20-40); Mean Corpuscular HGB Conc 33.7 g/dl (31.0-35.0); Mean Corpuscular Hemoglobin 36.2 pg (27.0-33.0); Mean Corpuscular Volume 107.4 fL (80-98); Mean Platelet Volume 10.7 fL (9.4-12.3); Monocytes Percent Auto 14.9 % (2-11); Neutrophils Absolute Auto 4.5 X10*3/uL (2.0-8.3); Neutrophils Percent Auto 66.3 % (45-73); Platelet Count 153 X10*3/uL (160-400); Red Blood Count 2.29 X10*6/uL (4.20-5.50); Red Cell Distribution Width 16.6 % (11.0-16.0); White Blood Count 6.8 X10*3/uL (4.8-10.8)
[2020-08-05 08:06] LABS: Blood Urea Nitrogen 13 mg/dL (9-16); Calcium 7.7 mg/dL (8.4-10.2); Creatinine Clr Calc Pharmacy 92.3; Estimated Glomerular Filt Rate > 60; Glucose Fasting 94 mg/dL (60-99)
[2020-08-05] MEDS: Docusate Sodium 100 MG CAPSULE PO ×2 (08:24→20:25)
[2020-08-05] MEDS: PHENobarbitaL 30 MG TABLET PO ×2 (08:24→20:26)
[2020-08-05] MEDS: oxyCODONE HCl Immed Release 5 MG TABLET PO ×2 (08:25→16:50)
[2020-08-05] MEDS: oxyCODONE HCl ER 10 MG TAB.ER.12H PO ×2 (08:25→20:26)
[2020-08-05 08:27] LABS: Anion Gap 16 (12-20); Carbon Dioxide 20 mmol/L (22-29); Chloride 107 mmol/L (96-108); Potassium 4.7 mmol/L (3.3-5.1); Sodium 138 mmol/L (135-145)
--- NOTE | 2020-08-05 09:32 | HO.PM.IMPN ---
Subjective Subjective Date of Service: 08/05/20 Interval History: Seen in f/u for periop manaament for hip fracture surgery done 08/04, has some pain but controlled with pain meds Review of Systems Gen: no fever Resp: no sob, no cough CV: no chest, no SHARIF, no leg edema GI: No n/v, no abd pain Neuro: No confusion MSKl : hip pain with movement Physical Exam Vital Signs: Vital Signs: Last Vital Signs Temp 98.6 F 08/05/20 07:52 Pulse 95 08/05/20 07:52 Resp 18 08/05/20 07:52 BP 100/60 08/05/20 07:52 Pulse Ox 98 08/05/20 07:52 Body Mass Index 26.6 General: AO X 3, no acute distress Resp: CTA bilateral CVS: S1,S2,RRR GI: +BS, NT, no distention Skin: No rash, surgery site intact, dressing in place Neuro: motor grossly intact Psych: appropriate affect Objective Data Current Medications Generic Name Dose Route Start Last Admin Trade Name Freq PRN Reason Stop Dose Admin Acetaminophen 650 mg 08/02/20 01:13 Acetaminophen Supp 650 Mg Supp.Rect [place] Q6H PRN Pain, Mild (Pain Scale 1-3) Docusate Sodium 100 mg 08/02/20 09:00 08/05/20 08:24 Docusate Sodium 100 Mg Capsule PO 100 mg BID PATI Administration Enoxaparin Sodium 40 mg 08/05/20 10:00 Enoxaparin Sodium 40 Mg/0.4 Ml Syringe SUBCUT Q24H PATI Hydromorphone HCl 0.25 mg 08/02/20 01:13 08/05/20 06:23 Hydromorphone Hcl 0.5 Mg/0.5 Ml Syringe IVPUSH 0.25 mg Q4H PRN Administration Pain, Severe (Pain Scale 7-10) Medication 1 each 08/02/20 09:00 No Benzodiazepines MISCELLANE DAILY PATI Naloxone HCl 0.2 mg 08/02/20 01:13 Naloxone Hcl 0.4 Mg/Ml Vial IVPUSH Q2M PRN Excessive sedation or RR < 8 Ondansetron HCl 4 mg 08/02/20 01:13 Ondansetron Hcl 4 Mg/2 Ml Vial IVPUSH Q8H PRN Nausea and Vomiting Ondansetron HCl 4 mg 08/04/20 13:07 Ondansetron Hcl 4 Mg/2 Ml Vial IVPUSH ONCE PRN Nausea and Vomiting Oxycodone HCl 5 mg 08/02/20 01:13 08/05/20 08:25 Oxycodone Hcl Immed Release 5 Mg Tablet PO 5 mg Q4H PRN Administration Pain, Moderate (Pain Scale 4-6 Oxycodone HCl 10 mg 08/02/20 09:00 08/05/20 08:25 Oxycodone Hcl Er 10 Mg Tab.Er.12h PO 10 mg BID PATI Administration Phenobarbital 30 mg 08/04/20 21:00 08/05/20 08:24 Phenobarbital 30 Mg Tablet PO 08/06/20 09:01 30 mg BID [facility] Administration Protocol Phenobarbital 30 mg 08/07/20 09:00 Phenobarbital 30 Mg Tablet PO 08/08/20 09:01 DAILY [facility] Protocol Sodium Chloride 3 ml 08/02/20 01:13 08/05/20 07:47 0.9 % Sodium Chloride Flush 3 Ml Syringe IVFLUSH Not Given QSHIFT [facility] Labs CBC & Chem 7: 08/05/20 06:52 08/05/20 06:52 Microbiology Microbiology Results: Microbiology 08/02/20 Unknown Urine [place] Urine Culture - Final Escherichia coli Assessment and Plan (1) Femoral neck fracture: Status: Acute (2) Chronic alcohol use: Status: Inactive (3) Fall (on) (from) other stairs and steps, initial encounter: Status: Acute Assessment and Plan: 55 year female with alcohol dependency here with mechanical fall and righ hip fracture 1/Right hip fracture--surgical repair / -post op manaement by ortho 2/Alcohol dependence--high risk for withdrawal and would suggest premptively treating with Phenobarbital, supplemental folic acid, thiamine--so far no withdrawal, presently no signs of withdrawal 3/CHRIS--pre renal. Resolved 4/Coagulaopathy with INR 1.6 d/t chronic liver disease and likely cirrhosis of liver -treated with Vit K 5/ Elevated LFTs due to chronic liver disease/cirrhosis-should get US of liver before discharge 6/Hypotension-- resolved with IVF, DC IVF 7/Elevated DDimer--No PE on CTA 8/Anemia--Transfuse if Hgb less than 8
[2020-08-05] MEDS: Enoxaparin Sodium 40 MG/0.4 ML SYRINGE SUBCUT (11:52)
--- NOTE | 2020-08-05 14:04 | HO.POSTANES ---
Post Anesthesia Evaluation Post Anesthesia Evaluation Vital Signs: Vital Signs Temp Pulse Resp BP Pulse Ox 08/05/20 13:00 20 08/05/20 12:32 99 102/50 L 98 08/05/20 11:49 98.6 F 99 16 102/50 L 98 08/05/20 07:52 98.6 F 95 18 100/60 98 08/05/20 02:58 99.2 F 85 16 102/64 99 Anesthesia: General Endotracheal-GETA Mental Status: Awake Pain Control: Satisfactory Nausea/Vomiting: None Hydration: Adequate Anesthesia-Related Issues: No Anes. Related Issues
[2020-08-05] MEDS: 0.9 % Sodium Chloride Flush 3 ML SYRINGE IVFLUSH ×2 (16:50→23:44)
--- NOTE | 2020-08-05 20:23 | P.PNOP_ITS ---
Subjective Subjective Date of Service: 08/05/20 Interval history: POD 1 s/p RT hip hemiarthroplasty no overnight events resting in bed, has some discomfort but doing well denies cp, sob, dizziness Physical Exam Vital Signs: Vital Signs: Last Vital Signs Temp 97.3 F 08/05/20 19:35 Pulse 94 08/05/20 19:35 Resp 15 08/05/20 19:35 BP 98/57 L 08/05/20 19:35 Pulse Ox 96 08/05/20 19:35 Body Mass Index 26.6 Const: General: cooperative, healthy appearing and no acute distress Resp: Effort & Inspection: normal respiratory effort and able to speak in complete sentences Cardio: Rate: regular rate Peripheral pulses: Peripheral pulses 2+ througho ut GI: Palpation (GI): Soft to palpation Skin: General skin exam: no rashes or lesions noted Extrem: Other: right hip bandage clean dry and intact. No erythema or effusion. Calf supple nontender. Neurovascularly intact. Progress Note: A&P Assessment and plan (1) Femoral neck fracture: Status: Acute Assessment and Plan: * Continue pain mgmnt * Begin lovenox for dvt ppx * begin PT /OT for RT hip edwar-posterior precautions * monitor h/h * Dispo planning-Pending PT eval, pain mgmnt Fall Risk Details Current Medications: Current Medications Generic Name Dose Route Start Last Admin Trade Name Freq PRN Reason Stop Dose Admin Acetaminophen 650 mg 08/02/20 01:13 Acetaminophen Supp [address] Q6H PRN Pain, Mild (Pain Scale 1-3) Docusate Sodium 100 mg 08/02/20 09:00 08/05/20 08:24 Docusate Sodium 100 Mg Capsule PO 100 mg BID PATI Administration Enoxaparin Sodium 40 mg 08/05/20 10:00 08/05/20 11:52 Enoxaparin Sodium 40 Mg/0.4 Ml Syringe SUBCUT 40 mg Q24H PATI Administration Hydromorphone HCl 0.25 mg 08/02/20 01:13 08/05/20 13:00 Hydromorphone Hcl 0.5 Mg/0.5 Ml Syringe IVPUSH 0.25 mg Q4H PRN Administration Pain, Severe (Pain Scale 7-10) Medication 1 each 08/02/20 09:00 No Benzodiazepines MISCELLANE DAILY PATI Naloxone HCl 0.2 mg 08/02/20 01:13 Naloxone Hcl 0.4 Mg/Ml Vial IVPUSH Q2M PRN Excessive sedation or RR < 8 Ondansetron HCl 4 mg 08/02/20 01:13 Ondansetron Hcl 4 Mg/2 Ml Vial IVPUSH Q8H PRN Nausea and Vomiting Ondansetron HCl 4 mg 08/04/20 13:07 Ondansetron Hcl 4 Mg/2 Ml Vial IVPUSH ONCE PRN Nausea and Vomiting Oxycodone HCl 5 mg 08/02/20 01:13 08/05/20 16:50 Oxycodone Hcl Immed Release 5 Mg Tablet PO 5 mg Q4H PRN Administration Pain, Moderate (Pain Scale 4-6 Oxycodone HCl 10 mg 08/02/20 09:00 08/05/20 08:25 Oxycodone Hcl Er 10 Mg Tab.Er.12h PO 10 mg BID PATI Administration Phenobarbital 30 mg 08/04/20 21:00 08/05/20 08:24 Phenobarbital 30 Mg Tablet PO 08/06/20 09:01 30 mg BID [facility] Administration Protocol Phenobarbital 30 mg 08/07/20 09:00 Phenobarbital 30 Mg Tablet PO 08/08/20 09:01 DAILY [facility] Protocol Sodium Chloride 3 ml 08/02/20 01:13 08/05/20 16:50 0.9 % Sodium Chloride Flush 3 Ml Syringe IVFLUSH 3 ml QSHIFT PATI Administration Time Spent With Patient Time: Total time spent is greater than 50% in coordination of care (as documented) at patient's floor/unit and/or counseling patient: Time with patient: less than 15 minutes Procedures Date of Service Date of Service: 08/05/20
[2020-08-06] VITALS (14 sets, daily range): BP systolic 90–107; BP diastolic 52–63; PULSE 79–92; RESP 15–20; TEMP 36.4–37.4; O2SAT 94–98
[2020-08-06 08:09] LABS: Eosinophils Absolute Auto 0.2 X10*3/uL (0.0-0.4); Red Cell Distribution Width 16.1 % (11.0-16.0)
[2020-08-06 08:11] LABS: Basophils Percent Auto 0.5 % (0-2); Eosinophils Percent Auto 2.1 % (0-4); Hematocrit 21.7 % (37-47); Hemoglobin 7.4 g/dl (12.0-16.0); Imm Gran Abs Auto 0.05 X10*3/uL (0.00-0.03); Imm Gran Pct Auto 0.6 % (0.0-0.4); Lymphocytes Absolute Auto 1.3 X10*3/uL (1.2-4.9); Lymphocytes Percent Auto 15.5 % (20-40); Mean Corpuscular HGB Conc 34.1 g/dl (31.0-35.0); Mean Corpuscular Hemoglobin 35.1 pg (27.0-33.0); Mean Corpuscular Volume 102.8 fL (80-98); Mean Platelet Volume 10.7 fL (9.4-12.3); Monocytes Absolute Auto 1.3 X10*3/uL (0.1-1.2); Monocytes Percent Auto 16.1 % (2-11); Neutrophils Absolute Auto 5.4 X10*3/uL (2.0-8.3); Neutrophils Percent Auto 65.2 % (45-73); Platelet Count 137 X10*3/uL (160-400); Red Blood Count 2.11 X10*6/uL (4.20-5.50); White Blood Count 8.3 X10*3/uL (4.8-10.8)
[2020-08-06] MEDS: oxyCODONE HCl Immed Release 5 MG TABLET PO (08:15)
[2020-08-06] MEDS: Enoxaparin Sodium 40 MG/0.4 ML SYRINGE SUBCUT (08:15)
[2020-08-06] MEDS: PHENobarbitaL 30 MG TABLET PO (08:15)
[2020-08-06] MEDS: Docusate Sodium 100 MG CAPSULE PO ×2 (08:15→19:59)
[2020-08-06] MEDS: oxyCODONE HCl ER 10 MG TAB.ER.12H PO ×2 (08:15→19:59)
[2020-08-06] MEDS: 0.9 % Sodium Chloride Flush 3 ML SYRINGE IVFLUSH ×3 (08:17→23:24)
--- NOTE | 2020-08-06 08:56 | HO.PM.IMPN ---
Subjective Subjective Date of Service: 08/06/20 Interval History: Seen in f/u for periop manaament for hip fracture surgery done 08/04, pain is controlled, had an isolated low grade temp of 100.9 now normal, Hgb is 7.4 Review of Systems Gen: no fever Resp: no sob, no cough CV: no chest, no SHARIF, no leg edema GI: No n/v, no abd pain Neuro: No confusion MSKl : hip pain with movement Physical Exam Vital Signs: Vital Signs: Last Vital Signs Temp 97.5 F 08/06/20 08:00 Pulse 86 08/06/20 08:00 Resp 17 08/06/20 08:00 BP 100/61 08/06/20 08:00 Pulse Ox 96 08/06/20 08:00 Body Mass Index 26.6 Const: Other: Constitutional Awake and Alert, No apparent distress HEENT-normal eye movment, no clear jaundice Neck Supple, No lymphadenopathy Cardiovascular RRR, No M/R/G, S1 S2, No S3 S4, No pedal edema Respiratory Lungs clear, No respiratory distress Gastrointestinal Non tender, Non-distended Skin No rash Neurological Alert & oriented x3 Psychological Appropriate affect Objective Data Current Medications Generic Name Dose Route Start Last Admin Trade Name Freq PRN Reason Stop Dose Admin Acetaminophen 650 mg 08/02/20 01:13 Acetaminophen Supp 650 Mg Supp.Rect HI Q6H PRN Pain, Mild (Pain Scale 1-3) Docusate Sodium 100 mg 08/02/20 09:00 08/06/20 08:15 Docusate Sodium 100 Mg Capsule PO 100 mg BID PATI Administration Enoxaparin Sodium 40 mg 08/05/20 10:00 08/06/20 08:15 Enoxaparin Sodium 40 Mg/0.4 Ml Syringe SUBCUT 40 mg Q24H PATI Administration Hydromorphone HCl 0.25 mg 08/02/20 01:13 08/05/20 13:00 Hydromorphone Hcl 0.5 Mg/0.5 Ml Syringe IVPUSH 0.25 mg Q4H PRN Administration Pain, Severe (Pain Scale 7-10) Medication 1 each 08/02/20 09:00 No Benzodiazepines MISCELLANE DAILY PATI Naloxone HCl 0.2 mg 08/02/20 01:13 Naloxone Hcl 0.4 Mg/Ml Vial IVPUSH Q2M PRN Excessive sedation or RR < 8 Ondansetron HCl 4 mg 08/02/20 01:13 Ondansetron Hcl 4 Mg/2 Ml Vial IVPUSH Q8H PRN Nausea and Vomiting Ondansetron HCl 4 mg 08/04/20 13:07 Ondansetron Hcl 4 Mg/2 Ml Vial IVPUSH ONCE PRN Nausea and Vomiting Oxycodone HCl 5 mg 08/02/20 01:13 08/06/20 08:15 Oxycodone Hcl Immed Release 5 Mg Tablet PO 5 mg Q4H PRN Administration Pain, Moderate (Pain Scale 4-6 Oxycodone HCl 10 mg 08/02/20 09:00 08/06/20 08:15 Oxycodone Hcl Er 10 Mg Tab.Er.12h PO 10 mg BID PATI Administration Phenobarbital 30 mg 08/04/20 21:00 08/06/20 08:15 Phenobarbital 30 Mg Tablet PO 08/06/20 09:01 30 mg BID PATI Administration Protocol Phenobarbital 30 mg 08/07/20 09:00 Phenobarbital 30 Mg Tablet PO 08/08/20 09:01 DAILY [facility] Protocol Sodium Chloride 3 ml 08/02/20 01:13 08/06/20 08:17 0.9 % Sodium Chloride Flush 3 Ml Syringe IVFLUSH 3 ml QSHIFT [facility] Administration Labs CBC & Chem 7: 08/06/20 07:47 08/05/20 06:52 Microbiology Microbiology Results: Microbiology 08/02/20 Unknown Urine [place] Urine Culture - Final Escherichia coli Assessment and Plan (1) Femoral neck fracture: Status: Acute (2) Chronic alcohol use: Status: Inactive (3) Fall (on) (from) other stairs and steps, initial encounter: Status: Acute Assessment and Plan: 55 year female with alcohol dependency here with mechanical fall and righ hip fracture 1/Right hip fracture--surgical repair / -post op manaement by ortho 2/Alcohol dependence--high risk for withdrawal and would suggest premptively treating with Phenobarbital, supplemental folic acid, thiamine--so far no withdrawal, presently no signs of withdrawal 3/CHRIS--pre renal. Resolved 4/Coagulaopathy with INR 1.6 d/t chronic liver disease and likely cirrhosis of liver -treated with Vit K 5/ Elevated LFTs due to chronic liver disease/cirrhosis-should get US of liver before discharge 6/Hypotension-- resolved with IVF, DC IVF 7/Elevated DDimer--No PE on CTA 8/Anemia, chronic with acute component from hip fracture, recommend transfusion 1 unit She accepts going to rehab, reluctantly
[2020-08-06 09:03] LABS: Anion Gap 9 (12-20); Blood Urea Nitrogen 13 mg/dL (9-16); Calcium 7.6 mg/dL (8.4-10.2); Carbon Dioxide 26 mmol/L (22-29); Chloride 104 mmol/L (96-108); Creatinine Clr Calc Pharmacy 93.7; Estimated Glomerular Filt Rate > 60; Glucose Fasting 95 mg/dL (60-99); Potassium 4.4 mmol/L (3.3-5.1); Sodium 135 mmol/L (135-145)
[2020-08-07] VITALS: BP 104/58; PULSE 79; RESP 18; TEMP 36.6; O2SAT 95
[2020-08-07 03:41] VITALS: BP 101/61; PULSE 79; RESP 18; TEMP 37.4; O2SAT 96
[2020-08-07 07:55] VITALS: BP 113/61; PULSE 80; RESP 17; TEMP 36.9; O2SAT 95
[2020-08-07 08:25] LABS: MANUAL DIFF FLAG NO
[2020-08-07 08:31] LABS: Basophils Absolute Auto 0.1 X10*3/uL (0.0-0.2); Basophils Percent Auto 0.6 % (0-2); Eosinophils Absolute Auto 0.2 X10*3/uL (0.0-0.4); Hemoglobin 9.8 g/dl (12.0-16.0); Imm Gran Abs Auto 0.05 X10*3/uL (0.00-0.03); Imm Gran Pct Auto 0.6 % (0.0-0.4); Lymphocytes Absolute Auto 1.2 X10*3/uL (1.2-4.9); Lymphocytes Percent Auto 15.2 % (20-40); Mean Corpuscular HGB Conc 33.8 g/dl (31.0-35.0); Mean Corpuscular Hemoglobin 32.7 pg (27.0-33.0); Mean Corpuscular Volume 96.7 fL (80-98); Mean Platelet Volume 10.7 fL (9.4-12.3); Monocytes Absolute Auto 1.3 X10*3/uL (0.1-1.2); Monocytes Percent Auto 15.9 % (2-11); Neutrophils Absolute Auto 5.2 X10*3/uL (2.0-8.3); Neutrophils Percent Auto 64.7 % (45-73); Platelet Count 146 X10*3/uL (160-400); Red Cell Distribution Width 18.7 % (11.0-16.0); White Blood Count 8.1 X10*3/uL (4.8-10.8)
[2020-08-07] MEDS: Docusate Sodium 100 MG CAPSULE PO (08:47)
[2020-08-07] MEDS: Enoxaparin Sodium 40 MG/0.4 ML SYRINGE SUBCUT (08:47)
[2020-08-07] MEDS: oxyCODONE HCl ER 10 MG TAB.ER.12H PO (08:48)
[2020-08-07] MEDS: PHENobarbitaL 30 MG TABLET PO (08:48)
[2020-08-07] MEDS: 0.9 % Sodium Chloride Flush 3 ML SYRINGE IVFLUSH (08:48)
[2020-08-07 08:57] LABS: Anion Gap 11 (12-20); Blood Urea Nitrogen 12 mg/dL (9-16); Calcium 7.6 mg/dL (8.4-10.2); Carbon Dioxide 24 mmol/L (22-29); Chloride 105 mmol/L (96-108); Creatinine Clr Calc Pharmacy 99.8; Estimated Glomerular Filt Rate > 60; Glucose Fasting 90 mg/dL (60-99); Potassium 3.9 mmol/L (3.3-5.1); Sodium 136 mmol/L (135-145)
--- NOTE | 2020-08-07 11:01 | HO.PM.IMPN ---
Subjective Subjective Date of Service: 08/07/20 Interval History: Seen in f/u for periop manaament for hip fracture surgery done 08/04, pain is controlled, no new issues, Hgb is better 9.8 Review of Systems Gen: no fever Resp: no sob, no cough CV: no chest, no SHARIF, no leg edema GI: No n/v, no abd pain Neuro: No confusion MSKl : hip pain with movement Physical Exam Vital Signs: Vital Signs: Last Vital Signs Temp 98.5 F 08/07/20 07:55 Pulse 80 08/07/20 07:55 Resp 17 08/07/20 07:55 BP 113/61 08/07/20 07:55 Pulse Ox 95 08/07/20 07:55 Body Mass Index 26.6 Const: Other: Constitutional Awake and Alert, No apparent distress HEENT-normal eye movment, no clear jaundice Neck Supple, No lymphadenopathy Cardiovascular RRR, No M/R/G, S1 S2, No S3 S4, No pedal edema Respiratory Lungs clear, No respiratory distress Gastrointestinal Non tender, Non-distended Skin No rash Neurological Alert & oriented x3 Psychological Appropriate affect Limitations: no limitations and No language barrier Objective Data Current Medications Generic Name Dose Route Start Last Admin Trade Name Freq PRN Reason Stop Dose Admin Acetaminophen 650 mg 08/02/20 01:13 Acetaminophen Supp 650 Mg Supp.Rect HI Q6H PRN Pain, Mild (Pain Scale 1-3) Docusate Sodium 100 mg 08/02/20 09:00 08/07/20 08:47 Docusate Sodium 100 Mg Capsule PO 100 mg BID PATI Administration Enoxaparin Sodium 40 mg 08/05/20 10:00 08/07/20 08:47 Enoxaparin Sodium 40 Mg/0.4 Ml Syringe SUBCUT 40 mg Q24H PATI Administration Medication 1 each 08/02/20 09:00 No Benzodiazepines MISCELLANE DAILY PATI Naloxone HCl 0.2 mg 08/02/20 01:13 Naloxone Hcl 0.4 Mg/Ml Vial IVPUSH Q2M PRN Excessive sedation or RR < 8 Ondansetron HCl 4 mg 08/02/20 01:13 Ondansetron Hcl 4 Mg/2 Ml Vial IVPUSH Q8H PRN Nausea and Vomiting Ondansetron HCl 4 mg 08/04/20 13:07 Ondansetron Hcl 4 Mg/2 Ml Vial IVPUSH ONCE PRN Nausea and Vomiting Phenobarbital 30 mg 08/07/20 09:00 08/07/20 08:48 Phenobarbital 30 Mg Tablet PO 08/08/20 09:01 30 mg DAILY [facility] Administration Protocol Sodium Chloride 3 ml 08/02/20 01:13 08/07/20 08:48 0.9 % Sodium Chloride Flush 3 Ml Syringe IVFLUSH 3 ml QSHIFT PATI Administration Labs CBC & Chem 7: 08/07/20 08:00 08/07/20 08:00 Microbiology Microbiology Results: Microbiology 08/02/20 Unknown Urine [place] Urine Culture - Final Escherichia coli Assessment and Plan (1) Femoral neck fracture: Status: Acute (2) Chronic alcohol use: Status: Inactive (3) Fall (on) (from) other stairs and steps, initial encounter: Status: Acute Assessment and Plan: 55 year female with alcohol dependency here with mechanical fall and righ hip fracture 1/Right hip fracture--surgical repair 08/04 -post op manaement by ortho 2/Alcohol dependence--high risk for withdrawal and would suggest premptively treating with Phenobarbital, supplemental folic acid, thiamine--so far no withdrawal, presently no signs of withdrawal 3/CHRIS--pre renal. Resolved 4/Coagulaopathy with INR 1.6 d/t chronic liver disease and likely cirrhosis of liver -treated with Vit K 5/ Elevated LFTs due to chronic liver disease/cirrhosis-should get US of liver before discharge 6/Hypotension-- resolved with IVF, DC IVF 7/Elevated DDimer--No PE on CTA 8/Anemia, chronic with acute component from hip fracture s/p transfusion h/h is better He is agreable to going to rehab when bed is available She accepts going to rehab, reluctantly
[2020-08-07] MEDS: oxyCODONE HCl Immed Release 5 MG TABLET PO ×2 (11:20→15:20)
--- NOTE | 2020-08-07 11:56 | MHC.CM.PN ---
PT DISCHARGING TO [facility], [facility] FOR S TRANSPORT, PT'S DTR/ALTERNATE HCP IN ROOM AND REPORTED SHE HAS OBTAINED A PCP FOR PT AND SHE HAS A TELE HEALTH APPT THIS Friday08/11/20. PCP: EMILY DIEHL
[2020-08-07 11:58] LABS: COVID-19 Test Negative (Negative); IDNOW Serial# 9DD0AD1C
[2020-08-07 12:00] VITALS: BP 105/58; PULSE 88; RESP 19; TEMP 36.9; O2SAT 95
--- NOTE | 2020-08-07 12:45 | MHC.RECOVSUP ---
Recovery Support note: Patient is a 55 year old [place] Citizen speaking female who presented to [facility] ED due to a fall and was medically admitted. This medical writer met with patient to discuss her alcohol use and recovery supports Patient reports her drinking was previously a problem however she is down to 1-2 drinks a day and has not found this level of consumption to be problematic. Patient did express interest in reducing her consumption further and stopping entirely. Patient reports she was offended when she was asked if she was intoxicated prior to the fall. Discussed this event with patient and reassured her that it is documented that alcohol was not a factor in the fall. Patient reports she was going to close on a condo but was unable to do so because of the fall and subsequent hospitalization. Patient also reports that she broke up with her boyfriend a month ago. Patient reports she has managed to avoid drinking heavily during this period and that she has family who can support her. Patient reports that she does not have time for group support however she will consider Vivitrol as an option. Patient provided with resources for Vivitrol and encouraged her to reach out to staff if she has additional questions. Discussed case with patient's RN.
--- NOTE | 2020-08-07 14:32 | P.DS_ITS ---
DS: Providers Provider Date of Service: 08/07/20 Date of admission: 08/02/20 01:13 Primary care physician: Darien Oseguera MD Consults: 08/02/20 01:13 Consult to Hospitalist Routine Consulting Provider: Hospitalist Reason For Exam: routine medical mngmt, f/u abnormal EKG before sx 08/02/20 08:12 Consult to Cardiology Routine Consulting Provider: Paul Mir Reason for consultation: Pre Op, ST changes on anterior Has provider been notified: No DS: Diagnosis Discharge Diagnosis (1) Femoral neck fracture: Status: Acute (2) Chronic alcohol use: Status: Inactive (3) Fall (on) (from) other stairs and steps, initial encounter: Status: Acute DS: Medications Discharge Medications Home Medications: Previous Rx's Medication Instructions Recorded oxycodone 5 mg PO Q4H PRN 7 Days #42 tab 08/05/20 docusate sodium 100 mg PO BID 14 Days #28 cap 08/07/20 enoxaparin 40 mg SUBCUT Q24H 42 Days #16.8 ml 08/07/20 DS: Summary Hospital Course Hospital Course: This is a 55-year-old female who presented to the emergency department after sustaining a fall at home. She was found to have a right femoral neck fracture. She was admitted to the Orthopedic Service for further workup and surgical planning. The patient underwent a successful right hip edwar arthroplasty, was transferred to PACU and then to the floor to recover. During their stay, their vitals were stable, afebrile at 98.5. Labs were unremarkable, H/H 9.8/29.0 . POD 1 she was started on Lovenox for DVT ppx, they also received services twice a day. Postop day 2 her H and H dropped to 7.4/21.7. She was given 2 units of packed red blood cells. Prior to discharge, their dressing was change, incision clean dry and intact, new Aquacel dressing applied and the plan was to be discharged to short-term rehab. Time Spent with Patient Time attestation: Total time spent providing and/or coordinating discharge services: Discharge coordination time: Less than 30 minutes Quality: Stroke Does the patient have a stroke diagnosis?: No Physical Exam Vital Signs: Vital Signs: Last Vital Signs Temp 98.5 F 08/07/20 12:00 Pulse 88 08/07/20 12:00 Resp 19 08/07/20 12:00 BP 105/58 L 08/07/20 12:00 Pulse Ox 95 08/07/20 12:00 Body Mass Index 26.6 Const: General: cooperative, healthy appearing and no acute distress Resp: Effort & Inspection: normal respiratory effort and able to speak in complete sentences Cardio: Rate: regular rate Peripheral pulses: Peripheral pulses 2+ throughout GI: Palpation (GI): Soft to palpation Skin: General skin exam: no rashes or lesions noted Extrem: Other: incision clean dry and intact. Jada intact. No erythema or effusion. Calf supple nontender. Neurovascularly intact. DS: Data Data Completed and Pending Labs on day of discharge: Laboratory Results - last 24 hr 08/06/20 08/07/20 08/07/20 08:45 08:00 08:00 WBC 8.1 RBC 3.00 L D Hgb 9.8 L D Hct 29.0 L D MCV 96.7 D MCH 32.7 MCHC 33.8 RDW 18.7 H Plt Count 146 L MPV 10.7 Immature Gran % (Auto) 0.6 H Neut % (Auto) 64.7 Lymph % (Auto) 15.2 L [place] % (Auto) 15.9 H Eos % (Auto) 3.0 Baso % (Auto) 0.6 Lymph # (Auto) 1.2 [place] # (Auto) 1.3 H Eos # (Auto) 0.2 Baso # (Auto) 0.1 Abs Immat Gran (auto) 0.05 H Absolute Neuts (auto) 5.2 Absolute Nucleated RBC 0.000 Nucleated RBC % (auto) 0.0 Sodium 136 Potassium 3.9 Chloride 105 Carbon Dioxide 24 Anion Gap 11 L BUN 12 Creatinine 0.62 Estim Creat Clear Calc 99.8 Estimated GFR > 60 Fasting Glucose 90 Calcium 7.6 L COVID-19 (REBECCA) COVID-19 Clin Com Blood Type O Positive Antibody Screen NEGATIVE Crossmatch See Detail 08/07/20 11:22 WBC RBC Hgb Hct MCV MCH MCHC RDW Plt Count MPV Immature Gran % (Auto) Neut % (Auto) Lymph % (Auto) [place] % (Auto) Eos % (Auto) Baso % (Auto) Lymph # (Auto) [place] # (Auto) Eos # (Auto) Baso # (Auto) Abs Immat Gran (auto) Absolute Neuts (auto) Absolute Nucleated RBC Nucleated RBC % (auto) Sodium Potassium Chloride Carbon Dioxide Anion Gap BUN Creatinine Estim Creat Clear Calc Estimated GFR Fasting Glucose Calcium COVID-19 (REBECCA) Negative COVID-19 Clin Com See Note Blood Type Antibody Screen Crossmatch Discharge Plan Discharge Patient Disposition: er [facility] Discharge Diagnosis: Right hip hemiarthroplasty Referrals: Darien Oseguera MD [Primary Care Provider] - 1 Week Dilcia Crowell PA-C [Physician Jamb Cutter] - None (FridayAugust 18 @ 9:30 am with Dilcia) Discharge Medications: New oxycodone 5 mg Tablet 5 mg PO Q4H PRN (Reason: Pain, Moderate (Pain Scale 4-6) 7 Days Qty: 42 RF: 0 enoxaparin 40 mg/0.4 mL Syringe 40 mg subcut Q24H 42 Days Qty: 16.8 RF: 0 docusate sodium 100 mg Capsule 100 mg PO BID 14 Days Qty: 28 RF: 0 Discharge Orders: Discharge Order (Routine); Ordered 08/07/20 Ordered By: New Pagan Diet: regular diet Activity on Discharge: Use cane or walker Stand Alone Forms: Patient Portal Discharge page Care Plan Goals: Restore function of joint Health Concerns: none Plan of Treatment: Physical Therapy Pain management DVT prophylaxis Assessment: * Physical Therapy for Right hip edwar arthroplasty: posterior precautions, gait training, ROM, strength * Limit stair climbing * No showering, no tub bath-keep dressing clean, dry and intact * No driving x6 weeks * Continue Lovenox tabs once a day x 6 weeks * Follow up with [facility] in 2 weeks
--- NOTE | 2020-08-17 09:44 | W.PM.OPN ---
Operative Note Operative Note Date of Service: 08/04/20 Narrative: Pre-op diagnosis: displaced right femoral neck fracture Post-op diagnosis: same Procedure: right hip hemiarthroplasty Implants: Strnavi accolade2 #5 wtih + bipolar Surgeon: Jatin Lima MD Anesthesia: GETA and local Estimated blood loss (mL): 200 IV fluids (mL): 800 Pathology: other Condition: stable Disposition: PACU Procedure in detail: Patient was brought to the operative room placed in the left lateral decubitus position. All bony prominences were well padded and the limb was prepped and draped in standard sterile fashion. IV antibiotics per weight were administered and a time-out was called to identify proper site proper procedure proper surgeon. Radiographs were available and confirmed. I began by making a curvilinear incision over the posterolateral aspect of the greater trochanter. Dissection was taken down to the tensor fascia which was incised in line with the incision and a Charnley retractor was placed. The hip was internally rotated and the external rotators were identified. All vessels in the area were cauterized and a full-thickness capsular/external rotator layer was developed in a hockey-stick fashion starting just proximal to the piriformis. This layer was tagged and the displaced femoral neck fracture was identified. Clean-up cut was performed and the head was removed and measured on the back table. I then copiously irrigated the acetabulum and removed all bony fragments. Once this was done I used a cookie cutter to lateralize and a Charnley awl to identify the canal and then sequentially broached up to a #___5__. I then trialed with a standard and a +4 head and a bipolar component matching the femoral head size. I was satisfied with the range of motion and stability and length using a +4. Therefore I removed all instrumentation and copiously irrigated. I then placed my final femoral implant and re-trialed. I wassatisfied with the ____+4 head and my final bipolar components were implanted. Once this was done I closed the capsular layer with FiberWire and then performed a layered closure with sheyla on skin. Patient was placed in sterile dressing extubated brought to recovery room in stable condition there were no known complications.
== END 2020-08-07 16:11 | disposition skilled nursing facility (03) | DRG 301 ==
LOC: HO.ED 08-02 00:52 → HO.EDOVER 08-02 01:34 → HO.S3 08-02 01:38
PROVIDERS: Internal Medicine; Orthopaedic Surgery; Physician Assistant; Admitting Provider Physician Assistant; Emergency Provider Emergency Medicine Emergency Medical Services; PCP Internal Medicine; Visit Provider Physician Assistant
PROC: 0SRR0JA Replacement of Right Hip Joint, Femoral Surface with Synthetic Substitute, Uncemented, Open Approach (ICD-10-PCS; CPT 27125; principal; 2020-08-04 13:00)
DX: S72.001A Fracture of unspecified part of neck of right femur, initial encounter for closed fracture (principal); N17.9 Acute kidney failure, unspecified; D68.9 Coagulation defect, unspecified; I95.9 Hypotension, unspecified; F10.20 Alcohol dependence, uncomplicated; F17.210 Nicotine dependence, cigarettes, uncomplicated; R94.31 Abnormal electrocardiogram [ECG] [EKG]; Z71.6 Tobacco abuse counseling; W10.9XXA Fall (on) (from) unspecified stairs and steps, initial encounter; Y93.9 Activity, unspecified; Y92.009 Unspecified place in unspecified non-institutional (private) residence as the place of occurrence of the external cause; Y99.9 Unspecified external cause status; Z20.822 Contact with and (suspected) exposure to COVID-19; Z88.0 Allergy status to penicillin; Z79.899 Other long term (current) drug therapy
CPT/HCPCS: 36415; 71045; 71275; 72170; 73502; 73552; 76705; 80048; 80053; 81001; 81003; 82607; 82746; 84484; 85025; 85379; 85610; 85730; 86850; 86900; 86901; 86923; 87086; 87088; 87186; 87635; 88304; 88305; 88311; 93005; 93306; 97116; 97161; 97165; 97530; 99285; C1776; J0690; J1100; J1170; J1650; J2060; J2250; J2270; J2405; J2560; J3010; J3430; P9016; Q9967

== ENCOUNTER → 2020-08-18 09:22 | Outpatient (BNVA) | payer OTHER, SELFPAY | PROVIDERS: PCP Internal Medicine; Visit Provider Physician Assistant | DX: Z47.1 Aftercare following joint replacement surgery (principal); Z96.641 Presence of right artificial hip joint | CPT/HCPCS: 99212 ==

== ENCOUNTER 2020-09-15 09:07 | Outpatient (REF) | payer OTHER, SELFPAY ==
--- NOTE | ~2020-09-15 | XR_ITS ---
EXAMINATION: XR PELVIS CLINICAL INFORMATION: Joint replacement COMPARISON: Previous x-ray most recent 08/05/2020 TECHNIQUE: AP view of the pelvis. FINDINGS: There is a right hip replacement in satisfactory position. No fracture or dislocation is seen. The left hip joint is normal. Bones of the pelvis are normal. There is soft tissue calcification adjacent to the left greater trochanter. XR/XR pelvis 1-2V IMPRESSION: Satisfactory appearance of right hip replacement.
== END 2020-09-15 09:08 | disposition home or self-care (01) ==
LOC: HO.HOSX 09:07
PROVIDERS: PCP Internal Medicine; Visit Provider Physician Assistant
DX: Z47.1 Aftercare following joint replacement surgery (principal); Z96.641 Presence of right artificial hip joint
CPT/HCPCS: 72170; 99212

== ENCOUNTER 2021-02-02 09:23 | Outpatient (REF) | payer OTHER, SELFPAY ==
--- NOTE | ~2021-02-02 | XR_ITS ---
EXAMINATION: XR HIP, RIGHT CLINICAL INFORMATION: Pain in the hip COMPARISON: 09/15/2020 TECHNIQUE: Two views of the right hip. Frontal view of the pelvis. FINDINGS: Bipolar right hip hemiarthroplasty noted. No periprosthetic lucency or fracture. The femoral head component articulates appropriately in the acetabulum. The left hip is well aligned with the joint space maintained. Small calcifications in the soft tissues adjacent to the left femoral greater trochanter. This is unchanged. The pelvic rim is intact. The sacroiliac joints and pubic symphysis are intact. Normal bowel gas pattern. XR/XR hip RT w [id number] IMPRESSION: Right hip hemiarthroplasty without evidence of failure.
== END 2021-02-02 09:24 | disposition home or self-care (01) ==
LOC: HO.HOSX 09:23
PROVIDERS: Visit Provider Physician Assistant
DX: M25.551 Pain in right hip (principal); G62.89 Other specified polyneuropathies; R53.1 Weakness; F17.210 Nicotine dependence, cigarettes, uncomplicated; Z96.641 Presence of right artificial hip joint
CPT/HCPCS: 73502; 99212